=== PATIENT | male | born 1990 | race Caucasian/White ===

== ENCOUNTER 2024-05-01 15:50 | Emergency (ER) | payer OTHER, SELFPAY ==
[2024-05-01] VITALS (11 sets, daily range): BP systolic 111–139; BP diastolic 78–94; PULSE 72–114; RESP 16–20; TEMP 36.3; O2SAT 93–97
--- NOTE | ~2024-05-01 | CT_ITS ---
CT scan of the Neck Technique: 2.5 mm axial scans were obtained through the neck after intravenous administration of 75 c c Omnipaque 350. Coronal and sagittal reconstructions of the neck were obtained. Dose reduction techn ique was used on this scan by utilizing automated exposure control and iterative reconstruction techn ique. The dose-length product (DLP) was 606.91 mGy-cm. Clinical History: Dysphagia Findings: There is no evidence of any significant cervical lymphadenopathy. Several small, nonenlarged jugulo- digastric and posterior cervical lymph nodes are noted bilaterally. Parapharyngeal spaces appear norm al bilaterally. The parotid and submandibular glands appear normal. The pharyngeal mucosal spaces appear normal. No soft tissue masses are seen in the neck. The thyroid gland appears normal. Images of the lung apices reveal no abnormalities. Impression: No significant abnormalities noted. Reviewed, dictated and finalized at [facility]. Impression: No significant abnormalities noted.
--- NOTE | 2024-05-01 16:40 | ED.GENADULT ---
HPI - General Adult General Chief complaint: Unspecified Stated complaint: lump in throat, difficulty swallowing Time Seen by Provider: 05/01/24 16:24 History of Present Illness HPI narrative: 33-year-old male with no past medical history presents to emergency department for a lump in his throat and dysphagia. Patient states in November of 2023 he noticed a lump in his throat. He has been evaluated by his PCP, Dr. Kc at [facility] and Dr. Carlos ENT. States he has been on Augmentin, as cefpodoxime, dexamethasone, cetirizine, methylprednisolone and Flonase without improvement. He is currently only taking Flonase. States within the past week he noticed another lump developing on the left side of his throat. States it is growing progressively and this is concerning him. He is concerned he may have lymphoma. He is reporting difficulty swallowing solid foods. No difficulty breathing. No nausea vomiting, no fever. He denies pain in his throat. States he has been tested multiple times for strep, mono and STDs of his throat, all of which were negative. he has an appointment with a new ENT, Dr. Sandoval on May 18. reports history of tonsillectomy as a child. Related Data Allergies Allergy/AdvReac Type Severity Reaction Status Date / Time No Known Allergies Allergy Verified 05/01/24 15:51 Review of Systems Review of Systems: CONSTITUTIONAL: Denies fever, chills, or sweats. EYES: Denies visual changes, redness, or discharge. ENT: See HPI CARDIOVASCULAR: Denies chest pain, palpitations, or edema. RESPIRATORY: Denies cough or dyspnea. GASTROINTESTINAL: Denies abdominal pain, nausea, vomiting, or diarrhea. GENITOURINARY: Denies dysuria or hematuria. SKIN: Denies rash or itching. MUSCULOSKELETAL: Denies back pain, joint pain, or myalgia. NEUROLOGIC: Denies headache, numbness, or weakness. PSYCHIATRIC: Denies anxiety or depression. Exam Narrative: GENERAL: Well-appearing, well-nourished, and in no acute distress. HEAD: Normocephalic, atraumatic. EYES: PERRLA and EOMI. ENT: posterior pharynx With a area of focal edema posterior to the left tonsillar pillar. No airway compromise. Uvula is midline. No exudates or erythema. Patient tolerating secretions, no drooling. No trismus. No palpable adenopathy NECK: Supple. CHEST: Clear to auscultation. No respiratory distress. HEART: Regular rate and rhythm. No murmur heard. Normal peripheral pulses. EXTREMITIES: Normal range of motion. No edema. SKIN: Warm, dry, no rash. NEURO: No focal deficits. Alert and oriented x3 Course Vital Signs Vital signs: Vital Signs Temperature 97.4 F L 05/01/24 15:58 Pulse Rate 114 H 05/01/24 15:58 Respiratory Rate 16 05/01/24 15:58 Blood Pressure 139/91 H 05/01/24 15:58 Pulse Oximetry 96 05/01/24 15:58 Temperature 97.4 F L 05/01/24 15:58 Pulse Rate 114 H 05/01/24 15:58 Respiratory Rate 16 05/01/24 15:58 Blood Pressure 139/91 H 05/01/24 15:58 Pulse Oximetry 96 05/01/24 15:58 Medical Decision Making MDM Narrative Medical decision making narrative: 33-year-old male presents to the emergency department for dysphagia and a lump in his throat since November, believes there is a new lump forming in the past week. Triage vital significant for tachycardia 114. He is afebrile. Exam is significant for a small area of focal edema posterior to the left tonsillar pillar. There is no airway compromise. No uvular deviation, no exudates or erythema. Patient is tolerating secretions, he is not drooling. He is speaking full sentences. CBC with leukocytosis of 18.7, no bandemia. ESR is normal at 5, CRP is normal at 0.5. Chemistries are largely unremarkable. Strep and mono were negative. CT soft tissue neck shows no significant abnormalities. Workup discussed with the patient. He is tolerating secretions , food and water, and is in no respiratory distress, is airway is intact. Feel he is safe to be d
[2024-05-01 16:55] LABS: Basophils Absolute Auto 0.1 K/mm3 (0.0-0.1); Basophils Percent Auto 0.7 % (0.2-1.2); Eosinophils Absolute Auto 0.3 K/mm3 (0-0.3); Eosinophils Percent Auto 1.5 % (0-4.4); Hematocrit 50.7 % (42.0-52.0); Hemoglobin 17.7 g/dL (14.0-18.0); Immature Granulocyte Absolute 0.06 K/mm3 (0.00-0.031); Immature Granulocyte Percent A 0.3 % (0-0.5); Lymphocytes Absolute Auto 4.76 K/mm3 (0.9-3.2); Lymphocytes Percent Auto 25.5 % (18.3-44.2); Mean Corpuscular HGB Conc 34.9 g/dl (32-36); Mean Corpuscular Hemoglobin 32.2 pg (26-34); Mean Corpuscular Volume 92.2 fl (80-100); Mean Platelet Volume 10.2 fl (7.4-10.4); Monocytes Absolute Auto 1.7 K/mm3 (0.1-0.6); Monocytes Percent Auto 8.9 % (2.6-8.5); Neutrophils Absolute Auto 11.8 K/mm3 (1.3-6.7); Neutrophils Percent Auto 63.1 % (45.5-73.1); Platelet Count Result 349 k/mm3 (150-375); Red Cell Distribution Width 12.7 % (11.5-14.5); White Blood Count 18.7 K/mm3 (4.5-10.0)
[2024-05-01 17:00] LABS: Estimated CRCL calculation 138 ml/min; Estimated Glomerular Filt Rate > 60
[2024-05-01 17:08] LABS: Alanine Aminotransferase 56 U/L (6-50); Albumin Level 4.9 g/dL (3.5-5.1); Alkaline Phosphatase 60 U/L (38-126); Anion Gap 10 mmol/L (4-12); Aspartate Amino Transferase 32 U/L (17-59); Bilirubin,Total 0.8 mg/dL (0.2-1.3); Blood Urea Nitrogen 8 mg/dL (9-20); CRP 0.5 mg/dL (<1.0); Calcium 9.6 mg/dL (8.4-10.2); Carbon Dioxide 22 mmol/L (22-30); Chloride 110 mmol/L (98-107); Estimated CRCL calculation 154 ml/min; Estimated Glomerular Filt Rate > 60; Glucose 125 mg/dL (65-110); Potassium 3.7 mmol/L (3.4-5.0); Sodium 142 mmol/L (137-145)
[2024-05-01 17:09] LABS: Monoscreen Negative (Negative); Negative Monotest Control Negative (Negative); Positive Monotest Control Positive (Positive)
[2024-05-01 17:34] LABS: Strep Group A RT-PCR NOT DETECTED (Negative)
[2024-05-01 17:48] LABS: Erythrocyte Sedimentation Rate 5 mm/hr (0-20)
--- NOTE | 2024-05-01 18:16 | PC.NURSE ---
tolerated PO challenge
== END 2024-05-01 18:20 | disposition home or self-care (01) ==
PROVIDERS: Emergency Provider Physician Assistant
DX: R09.A2 Foreign body sensation, throat (principal); F45.8 Other somatoform disorders
CPT/HCPCS: 36415; 70491; 80053; 85025; 85652; 86140; 86308; 87651; 99284; Q9967

== ENCOUNTER 2024-12-22 10:38 | Outpatient (CLI) | payer OTHER, SELFPAY ==
--- NOTE | 2024-12-22 | EST_ITS ---
Patient Info Name: Shaq Apodaca Age: 34 years : 1990 Gender: Male Ht: 71 in Wt: 265 lbs BSA: 2.50 m2 HR: 67 bpm BP: 120 / 70 mmHg Exam Date: 12/22/2024 11:14 AM Exam Location: Echo Lab Patient Status: Outpatient Admit Date: 12/22/2024 Staff Ordering Physician: KayodeSupriya MD Attending Provider: KayodeSupriya MD Exercise Technologist: Alessia Vasquez [facility] Exercise Physician: Chon Davis DO Exam Type: CA stress test treadmill Study Info A treadmill exercise stress test was performed. Summary 1. 1. Negative Edouard exercise stress test for ischemic ST changes by ECG criteria. 2. 2. Reduced functional capacity, achieving 7 METs of workload. 3. 3. Appropriate HR response to exercise. 4. 4. Appropriate HR recovery at 1 minute post exercise. 5. 5. No imaging with stress testing. 6. 6. Patient informed of the above results. Protocol: Edouard Stress ECG Details Stage: REST Duration (min): 6 min : 15 sec Speed (mph): 0.0 Grade (%): 0 HR (bpm): 69 SBP (mmHg): 120 DBP (mmHg): 70 METS: --- Stage: REST Duration (min): 8 min : 15 sec Speed (mph): 0.0 Grade (%): 0 HR (bpm): 68 SBP (mmHg): 120 DBP (mmHg): 70 METS: --- Stage: STAGE 1 Duration (min): 1 min : 0 sec Speed (mph): 1.7 Grade (%): 10 HR (bpm): 108 SBP (mmHg): 120 DBP (mmHg): 70 METS: --- Stage: STAGE 1 Duration (min): 2 min : 0 sec Speed (mph): 1.7 Grade (%): 10 HR (bpm): 117 SBP (mmHg): 120 DBP (mmHg): 70 METS: --- Stage: STAGE 1 Duration (min): 3 min : 0 sec Speed (mph): 1.7 Grade (%): 10 HR (bpm): 118 SBP (mmHg): 146 DBP (mmHg): 74 METS: --- Stage: STAGE 2 Duration (min): 1 min : 0 sec Speed (mph): 2.5 Grade (%): 12 HR (bpm): 147 SBP (mmHg): 146 DBP (mmHg): 74 METS: --- Stage: STAGE 2 Duration (min): 2 min : 0 sec Speed (mph): 2.5 Grade (%): 12 HR (bpm): 159 SBP (mmHg): 144 DBP (mmHg): 76 METS: --- Stage: STAGE 2 Duration (min): 3 min : 0 sec Speed (mph): 2.5 Grade (%): 12 HR (bpm): 164 SBP (mmHg): 144 DBP (mmHg): 76 METS: --- Stage: STAGE 3 Duration (min): 0 min : 11 sec Speed (mph): 3.4 Grade (%): 14 HR (bpm): 166 SBP (mmHg): 144 DBP (mmHg): 76 METS: --- Stage: RECOVERY Duration (min): 0 min : 48 sec Speed (mph): 0.0 Grade (%): 0 HR (bpm): 138 SBP (mmHg): 158 DBP (mmHg): 65 METS: --- Stage: RECOVERY Duration (min): 1 min : 48 sec Speed (mph): 0.0 Grade (%): 0 HR (bpm): 81 SBP (mmHg): 158 DBP (mmHg): 65 METS: --- Stage: RECOVERY Duration (min): 2 min : 48 sec Speed (mph): 0.0 Grade (%): 0 HR (bpm): 94 SBP (mmHg): 119 DBP (mmHg): 72 METS: --- Stage: RECOVERY Duration (min): 3 min : 6 sec Speed (mph): 0.0 Grade (%): 0 HR (bpm): 83 SBP (mmHg): 119 DBP (mmHg): 72 METS: --- Rest HR: 68 bpm Peak HR: 169 bpm Rest Sys BP: 120 mmHg Peak Sys BP: 158 mmHg Max Pred HR: 186 bpm % Max Pred HR: 91 % Target HR: 158 bpm Max RPP: 26,702 bpm*mmHg Martinez Score: 2 Termination Reason: Reached target heart rate or workload Cardiac Symptoms: Shortness of breath Max ST Seg Deviation: 0.90 mm Total Time: 6 min : 11 sec Rest Rangel BP: 70 mmHg Peak Rangel BP: 65 mmHg Angina Score: None Total METS: 7.4 Resting ECG Sinus rhythm, minimal Q waves in anterolat/inf leads. Stress ECG No ST changes. Arrhythmias None. Report Signatures
--- OUTSIDE RECORDS SUMMARY | 2024-12-22 12:07 | XMS_ITS | Referral Summary ---
Author Organization [facility] Address [address] [place] [address] Care Team Providers Care Pick Up Worker Name Role Phone Unavailable Primary Care Provider Unavailabl e Source Comments [facility],non-owned Affiliates and Associated Physician Practices is amultiple site organization consisting of ambulatory clinics and hospital sitesin [place], [place], [place] and [place]. This disclosure is being madepursuant to the Care Everywhere program and may not contain all information available regarding this patient. Last updated 18.[facility] Social History Tobacco Use Types Packs/Day Years Used Date Smoking Tobacco: Never Assessed Sex and Gender Information Value Date Recorded Sex Assigned at Not on file Gender Identity Not on file Sexual Orientation Not on file Plan of Treatment Not on file Shaq Apodaca Personal/Family Self 1990
--- OUTSIDE RECORDS SUMMARY | 2024-12-22 12:07 | XMS_ITS | Encounter Summary ---
Author Organization [facility] Address [facility] [place] [address] Care Team Providers Care Milk Drier Name Role Phone Supriya Headley MD Primary Care Provider Encounter Details Date Type Department Care Team (Late st Contact Info) Description 11/17/2024 MyChart Message Enc [facility] Family & Internal Medicine [facility] [id number] [place] [phone] [place] [address] [facility] [address] [place] [id number] Referrals and medication. 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 Legal Sex Male 1:52 PM CDT Gender Identity Male 11/11/2024 8:25 AM LAMINATION MACHINE OPERATOR Sexual Orientation Lesbian or Jeffrey 11/11/2024 8: 25 AM LAMINATION MACHINE OPERATOR documented as of this encounter Plan of Treatment Upcoming Encounters Date Type Department Care Team (Late st Contact Info) Description 02/10/2025 1:40 PM CDT Office Visit [facility] Family & Internal Medicine [facility] [address] [place] [phone] [place] [address] [place] [address] documented as of this encounter Visit Diagnoses Not on filedocumented in this encounter Additional Health Concerns Assessment Noted Time PHQ-9 Depression Total Score: 0 11/11/19 8:23 AM LAMINATION MACHINE OPERATOR documented as of this encounter Care Teams Milk Drier Relationship Specialty [place] [address] [place] [address] PCP - General INTERNAL MEDICINE 11/03/24 documented as of this encounter
--- OUTSIDE RECORDS SUMMARY | 2024-12-22 12:07 | XMS_ITS | Clinical Summary ---
Author Organization [facility] Address [address] [place] [address] Care Team Providers Care Lens Edge Grinder Machine Name Role Phone Unavailable Primary Care Provider Unavailabl e Source Comments [facility],non-owned Affiliates and Associated Physician Practices is amultiple site organization consisting of ambulatory clinics and hospital sitesin [place], [place], [place] and [place]. This disclosure is being madepursuant to the Care Everywhere program and may not contain all information available regarding this patient. Last updated 18.[facility] Social History Tobacco Use Types Packs/Day Years Used Date Smoking Tobacco: Never Assessed Sex and Gender Information Value Date Recorded Sex Assigned at Not on file Gender Identity Not on file Sexual Orientation Not on file Plan of Treatment Health Maintenance Due Date Last Done Comments HIV SCREENING 2005 HEPATITIS C SCREENING 05/12/2008 DTAP/TDAP/TD VACCINES (1 - Tdap) 2009 HEPATITIS B VACCINE (1 of 3 - 19+ 3-dose series) 2009 COVID-19 VACCINE ( - 2023-2 5 season) 2024 INFLUENZA VACCINE (#1) 2024 09/30/2018 DEPRESSION SCREENING 10/20/2024 ZOSTER VACCINE (1 of 2) 2040 HIB VACCINE Aged Out No longer eligi ble based on patient's age to complete this topic HPV VACCINE Aged Out No longer eligi ble based on patient's age to complete this topic MENINGOCOCCAL (Group B) VACCINE Aged Out No longer eligible based on patient's age to complete this topic MENINGOCOCCAL VACCINE Aged Out No carolyn mary grace eligible based on patient's age to complete this topic PNEUMOCOCCAL VACCINE Aged Out No long er eligible based on patient's age to complete this topic Shaq Apodaca Personal/Family Self 1990
--- OUTSIDE RECORDS SUMMARY | 2024-12-22 12:07 | XMS_ITS | Clinical Summary ---
Author Organization [facility] Address [facility] [place] [address] Care Team Providers Care Learning Support Assistant Name Role Phone Supriya Headley MD Primary Care Provider Allergies Active Allergy Reactions Criticality Noted Date Comments Cockroach Other (see comment) 12/02/2024 Confirmed with bloodwork Ragweed Other (see comment) 12/02/2024 Confirmed with bloodwork Medications losartan (COZAAR) 50 MG tabletIndications :Essential hypertension Take 1 tablet (50 mg total) by mouth daily. 90 tablet 1 09/09/20 24 Active famotidine (PEPCID) 40 MG tabletIndications :Gastroesophageal reflux disease without esophagitis Take 0.5 tablets (20 mg total) by mouth 2 (two) times daily with meals. 180 tablet 3 10/28/19 25 Active omeprazole (PRILOSEC) 40 MG capsuleIndication s:Gastroesophagea l reflux disease without esophagitis Take 1 capsule (40 mg total) by mouth daily. 90 capsule 3 10/28/19 25 Active atorvastatin (LIPITOR) 40 MG tabletIndications :Mixed hyperlipidemia Take 1 tablet (40 mg total) by mouth see administration instructions. AT DINNER 30 tablet 2 11/17/19 25 Active amoxicillin-clavu lanate (AUGMENTIN) 875-125 MG tablet Take 875 mg of amoxicillin by mouth 2 (two) times daily. 11/30/19 25 025 Disconti nued(Pat ient Discharg e) Active Problems Problem Noted Date Diagnosed Date Mixed hyperlipidemia 11/11/2024 SOB (shortness of breath) 11/09/2024 Intrinsic eczema 09/15/2024 Chronic congestion of paranasal sinus 08/20/2024 Gastroesophageal reflux disease without esophagi tis 08/20/2024 Non-seasonal allergic rhinitis due to pollen 10/2023 Obesity (BMI 30-39.9) 06/16/2024 Subclinical hypothyroidism 06/16/2024 Hidradenitis suppurativa 06/16/2024 Essential hypertension 06/16/2024 Encounters Date Type Department Care Team Description 12/05/2024 MyChart Message Enc [facility] Family & Internal Medicine [address] [phone] Supriya Headley MD Egd with biopsy 12/03/2024 11:59 PM SHRIMP TRAWLER CAPTAIN Anesthesia Event [address] [phone] Varinder Cortes CRNA 12/03/2024 Orders Only [facility] Family & Internal [address] [phone] Supriya Headley MD 12/03/2024 Telephone [facility] Day [facility] [address] [place] [address] [phone] Toshia Prado MD Surgical Clearance 12/02/2024 Travel 11/30/2024 Scan [facility] INFO SRVCS Scanned, [facility] 11/22/2024 MyChart Message Enc [facility] General Surgery [address], [address] [place] [address] Toshia Prado MD Fatty mass in throat 11/18/2024 MyChart Message Enc [facility] Family & Internal [address] [phone] Supriya Headley MD Stress test 11/17/2024 Orders Only [facility] Family & Internal [address] [phone] Supriya Headley MD 11/17/2024 Liam Message Enc [facility] Family & Internal [address] [phone] Liam michael Provider requests 11/17/2024 Orders Only [facility] Family Internal [address] [phone] Supriya Headley MD 11/17/2024 Liam Message Enc [facility] Family Internal [address] [phone] Supriya Headley MD Referrals and medication. 11/11/2024 12:55 PM SHRIMP TRAWLER CAPTAIN - 11/11/2024 11:59 PM SHRIMP TRAWLER CAPTAIN Hospital Encounter [facility] [address] [place] [address] Supriya Headley MD Discharge Disposition: Home or Self Care (Routine Discharge) 11/11/2024 9:10 AM SHRIMP TRAWLER CAPTAIN Laboratory Only [facility] Family & Internal [address] [phone] Supriya Headley MD 11/11/2024 8:20 AM SHRIMP TRAWLER CAPTAIN Office Visit [facility] Family & Internal [address] [phone] Supriya Headley MD New Patient (New patient transfer patient former loni / acid reflux and heart palpitations) 11/11/2024 Travel 11/09/2024 Prep for Procedure [facility] General Surgery [address], [address] [place] [phone] Toshia Prado MD 11/03/2024 2:49 PM SHRIMP TRAWLER CAPTAIN - 11/03/2024 11:59 PM SHRIMP TRAWLER CAPTAIN Hospital Encounter [facility] Cardiopulmonary Services [address] [place] [phone] Toshia Prado MD Discharge Disposition: Home or Self Care (Routine Discharge) 11/03/2024 2:49 PM SHRIMP TRAWLER CAPTAIN - 11/03/2024 11:59 PM SHRIMP TRAWLER CAPTAIN Hospital Encounter [facility] Imaging [address] [place] [address] Toshia Prado MD Discharge Disposition: Home or Self Care (Routine Discharge) 11/03/2024 2:48 PM SHRIMP TRAWLER CAPTAIN Hospital Encounter [facility] [address] [place] [address] Toshia Prado MD Discharge Disposition: Home or Self Care (Routine Discharge) 11/03/2024 2:20 PM SHRIMP TRAWLER CAPTAIN Office Visit [facility] General Surgery [address], [address] [place] [phone] Toshia Prado MD Egd (Patient presents for EGD consult due to GERD.) 11/03/2024 Travel 10/28/2024 Orders Only [facility] Family Internal [address] [phone] Loni Singh NP 10/27/2024 MyChart Message Enc [facility] Internal [address] [phone] Loni Singh NP Medications 10/08/2024 MyChart Message Enc [facility] Internal [address] [phone] Loni Singh NP E.n.t. Release Forms 10/08/2024 Telephone [facility] Internal [address] [phone] Loni Singh NP Results 10/01/2024 MyChart Message Enc [facility] Internal [address] [phone] Loni Singh NP G.I. and auditor tax from Last 3 Months Immunizations Name Administration Dates Next Due Dtp (Generic) 06/20/1995, 3,01/15/1992,09/02/1991,0 06/28/1991 Hepatitis A (Havrix [address]) 12/24/2010 Hepatitis B Pediatric 05/21/2000,12/18/1999,11/0 01/1999 Hib (Generic) 06/20/1995,11/28/1992,09/02/1991 ,06/28/1991 Influenza Adult (Generic) 09/30/2018 MMR (MMRII) 06/20/1995,08/05/1991 Polio Opv (Generic) 06/20/1995, 3,01/15/1992,09/02/1991,0 06/28/1991 Td (TDVAX) 06/06/2004 Tdap (Generic) 01/09/2022 Social History Tobacco Use Types Packs/Day Years Used Date Smoking Tobacco: Every Day Cigarettes 0.5 15 Smokeless Tobacco: Never Tobacco Cessation:Ready to Q uit: No; Counseling Given: Yes Comments:Trying to quit Alcohol Use Standard Drinks/Week Comments Yes 0 (1 standard drink = 0.6 oz pur e alcohol) rarely PHQ-2 Answer Date Recorded Patient Health Questionnaire-2 Score 0 11/11/2024 Sex and Gender Information Value Date Recorded Sex Assigned at Male 11/03/2024 2:46 PM SHRIMP TRAWLER CAPTAIN Legal Sex Male 1:52 PM CDT Gender Identity Male 11/11/2024 8:25 AM SHRIMP TRAWLER CAPTAIN Sexual Orientation Lesbian or Jeffrey 11/11/2024 8: 25 AM SHRIMP TRAWLER CAPTAIN Last Filed Vital Signs Vital Sign Reading Time Taken Comments Blood Pressure 134/80 11/11/2024 8:18 AM SHRIMP TRAWLER CAPTAIN Pulse 78 11/11/2024 8:18 AM SHRIMP TRAWLER CAPTAIN Temperature 37 C (98.6 F) 11/11/2024 8:18 AM SHRIMP TRAWLER CAPTAIN Respiratory Rate 16 11/11/2024 8:18 AM SHRIMP TRAWLER CAPTAIN Oxygen Saturation 98% 11/11/2024 8:18 AM SHRIMP TRAWLER CAPTAIN Inhaled Oxygen Concentration - - Weight 124.7 kg (275 lb) 12/02/2024 1:13 PM SHRIMP TRAWLER CAPTAIN Height 177.8 cm (5' 10 ) 12/02/2024 1:13 PM SHRIMP TRAWLER CAPTAIN Body Mass Index 39.46 12/02/2024 1:13 PM SHRIMP TRAWLER CAPTAIN Plan of Treatment Upcoming Encounters Date Type Department Care Team (Late st Contact Info) Description 02/10/2025 1:40 PM CDT Office Visit [facility] Family & Internal Medicine [facility] [address] [place] [phone] [place] [address] [facility] [address] [place] [address] Health Maintenance Due Date Last Done Comments Annual Physical 1993 Influenza Adult (#1) 2024 09/30/2018 Pneumococcal Vaccine: Pediatrics (0 to 5 Years) and At-Risk Patients (6 to 64 Years) (1 of 2 - PCV) 01/18/2025 Postponed from 1996 (Patient Refused) COVID-19 Vaccine ( - season) 2025 Postponed from 06/20/2024 (Patient Refused) DTaP, Tdap and Td Vaccines (7 - Td or Tdap) 01/10/2032 01/09/2022, 06/06/2004, 06/20/1995, Additional history exists Hepatitis B Vaccines Completed 05/21/2000, 12/18/1999, 08/23/1999 Hepatitis C Completed 02/10/2024 PHQ-2 (Physician Teller) Completed 11/11/2024 HPV Vaccines Aged Out No longer eligi ble based on patient's age to complete this topic Meningococcal B Vaccine Aged Out No l onger eligible based on patient's age to complete this topic Meningococcal Vaccine Aged Out No carolyn mary grace eligible based on patient's age to complete this topic RSV Immunizations Under 20 Months Aged Out No longer eligible based on patient's age to complete this topic Procedures Procedure Name Priority Date/Time Associated Diagnosis Comments STRESS TEST ONLY, EXERCISE Routine 12/02/2024 7:42 AM SHRIMP TRAWLER CAPTAIN SOB (shortness of breath) COLLECTION VENOUS BLOOD VENIPUNCTURE Routine 11/11/2024 9:09 AM SHRIMP TRAWLER CAPTAIN Mixed hyperlipidemia COMPREHENSIVE METABOLIC PANEL Routine 11/11/2024 9:09 AM SHRIMP TRAWLER CAPTAIN Mixed hyperlipidemia LIPID PANEL Routine 11/11/2024 9:09 AM SHRIMP TRAWLER CAPTAIN Mixed hyperlipidemia XR CHEST PA+LAT Routine 11/03/2024 3:35 PM SHRIMP TRAWLER CAPTAIN Gastroesophageal reflux disease without esophagitis SOB (shortness of breath) ECG 12-LEAD Routine 11/03/2024 3:34 PM SHRIMP TRAWLER CAPTAIN Gastroesophageal reflux disease without esophagitis SOB (shortness of breath) TROPONIN, QUANT Routine 11/03/2024 2:51 PM SHRIMP TRAWLER CAPTAIN Gastroesophageal reflux disease without esophagitis SOB (shortness of breath) HEPATITIS PANEL,ACUTE Routine 02/10/2024 8:07 AM CDT Exposure to STD High risk homosexual behavior from Last 3 Months or Most Recently Relevant to Health Maintenance Results * COMPREHENSIVE METABOLIC PANEL (11/11/2024 9:09 AM SHRIMP TRAWLER CAPTAIN) GLUCOSE 84 70 - 99 MG/DL 11/11/2024 1:40 PM [facility] BUN 8 7 - 18 MG/DL 11/11/2024 1:40 PM [facility] CREATININE S/P/B 1.01 0.7 - 1.3 MG/DL 11/11/2024 1:40 PM [facility] SODIUM S/P/B 143 136 - 145 MMOL/L 11/11/2024 1:40 PM [facility] POTASSIUM S/P/B 4.9 3.5 - 5.1 MMOL/L 11/11/2024 1:40 PM [facility] CHLORIDE S/P/B 107 100 - 108 MMOL/L 11/11/2024 1:40 PM [facility] CO2 26.8 21 - 32 MMOL/L 11/11/2024 1:40 PM [facility] CALCIUM S/P/B 9.8 8.5 - 10.1 MG/DL 11/11/2024 1:40 PM [facility] BILIRUBIN TOTAL S/P/B 0.5 0.2 - 1.2 MG/DL 11/11/2024 1:40 PM [facility] TOTAL PROTEIN S/P/B 7.3 6.4 - 8.2 G/DL 11/11/2024 1:40 PM [facility] ALBUMIN S/P/B 4.2 3.4 - 5.0 G/DL 11/11/2024 1:40 PM [facility] AST 24 15 - 37 U/L 11/11/2024 1:40 PM [facility] ALT 54 16 - 60 U/L 11/11/2024 1:40 PM [facility] ALKALINE PHOSPHATASE S/P/B 75 50 - 136 U/L 11/11/2024 1:40 PM [facility] ANION GAP 9.2 5 - 15 MMOL/L 11/11/2024 1:40 PM [facility] BUN CREATININE RATIO 7.9 6 - 26 11/11/2024 1:40 PM [facility] A/G RATIO 1.4 1.0 - 2.0 RATIO 11/11/2024 1:40 PM [facility] GFR ESTIMATE >90 >90 ML/MIN/1.7 3 M2 11/11/2024 1:40 PM [facility] Comment: NOTE: eGFR is not calculated for patients <18 years of age. This is an estimated GFR calculation using the new CKD EPI creatinine equation without race and so does not require a correction factor for race. This estimated GFR should not be used for calculating drug doses. 11/11/2024 9:09 AM SHRIMP TRAWLER CAPTAIN us Supriya Headley MD LABORATORY Final Resul t [facility] [address] [place] [address], [place] [phone] * (ABNORMAL) LIPID PANEL (11/11/2024 9:09 AM SHRIMP TRAWLER CAPTAIN) CHOLESTEROL 230(H) <200.0 MG/DL 11/11/2024 1:40 PM [facility] TRIGLYCERIDES 90 <150 MG/DL 11/11/2024 1:40 PM [facility] HDL 36(L) >40.0 MG/DL 11/11/2024 1:40 PM [facility] LDL (CALCULATED) 176(H) <100 MG/DL 11/11/2024 1:40 PM [facility] NON HDL CHOLESTEROL 194(H) <130 MG/DL 11/11/2024 1:40 PM [facility] CHOL/HDL RATIO 6.4(H) 0.0 - 4.5 11/11/2024 1:40 PM [facility] VLDL CALCULATION 18 5 - 55 MG/DL 11/11/2024 1:40 PM [facility] LIPID INTERPRETATION 11/11/2024 1:40 PM [facility] Comment: NIH CONCENSUS REPORT RECOMMENDATIONS: ADULT CHILD LOW RISK: CHOLESTEROL <200 <170 TRIGLYCERIDE <150 --- HDL >=60 --- LDL <100 <110 BORDERLINE: CHOLESTEROL 200-239 170-199 TRIGLYCERIDE 150-199 --- HDL 40-59 --- LDL 100-159 110-129 HIGH RISK: CHOLESTEROL >=240 >=200 TRIGLYCERIDE >=200 --- HDL <40 --- LDL >=160 >=130 11/11/2024 9:09 AM SHRIMP TRAWLER CAPTAIN us Supriya Headley MD LABORATORY Final Resul t [facility] [address] [place] [address], [place] [phone] * XR CHEST PA+LAT (11/03/2024 3:35 PM SHRIMP TRAWLER CAPTAIN) Anatomical Region Laterality Modality Chest Radiographic Laura ging 11/03/2024 5:47 PM SHRIMP TRAWLER CAPTAIN Impressions 11/03/2024 5:48 PM SHRIMP TRAWLER CAPTAIN IMPRESSION: Linear opacification right lower lung. This is suspected due to atelectasis. Referred By: Interpreted By: Ced Corbin MD, 11/03/2024 5:47 PM Narrative 11/03/2024 5:48 [place] [address] Procedure(s): XR CHEST PA+LAT Date of service: 11/03/2024 3:16 PM Provided clinical information: 34 years, Male, Shortness of breath Procedure and materials: PA and lateral Comparison studies: None. Findings: Cardiac silhouette is within normal limits. Lungs are expanded and clear of any consolidations. Minimal opacification right lower lung suspected due to atelectasis. Procedure Note Ced Corbin MD - 11/03/[address] [place] [address] Procedure(s): XR CHEST PA+LAT Date of service: 11/03/2024 3:16 PM Provided clinical information: 34 years, Male, Shortness of breath Procedure and materials: PA and lateral Comparison studies: None. Findings: Cardiac silhouette is within normal limits. Lungs are expanded and clearof any consolidations. Minimal opacification right lower lung suspecteddue to atelectasis. IMPRESSION: Linear opacification right lower lung. This is suspected due toatelectasis. Referred By: Interpreted By: Ced Corbin MD, 11/03/2024 5:47 PM Toshia Prado MD GENERAL IMAGING Final Result * ECG 12 lead (Hosp Performed) (11/03/2024 3:34 PM SHRIMP TRAWLER CAPTAIN) 11/03/2024 3:34 PM SHRIMP TRAWLER CAPTAIN Narrative [facility] RAD - 11/04/2024 6:58 AM SHRIMP TRAWLER CAPTAIN [facility] Test Date: 2024-11-03 Pat Name: SHAQ MELO Department: 85 Room: Gender: Male Fire Prevention Chief: : 1990 Requested By: TOSHIA PRADO Order Number: [id number] Reading MD: Dami Mathew Measurements Intervals Hasty Rate: 65 P: 33 MT: 151 QRS: 53 QRSD: 93 T: 40 QT: 373 QTc: 388 Interpretive Statements SINUS RHYTHM POSSIBLE LEFT VENTRICULAR HYPERTROPHY [VOLTAGE CRITERIA PLUS LAE OR QRS WIDENING] No previous ECG available for comparison MP TRAWLER CAPTAIN Procedure Note Dami Mathew MD - 11/04/2024 [facility] Test Date: 2024-11-03 Pat Name: SHAQ MELO Department: 85 Room: Gender: Male Fire Prevention Chief: : 1990 Requested By: TOSHIA PRADO Order Number: [id number] Reading MD: Dami Mathew Measurements Intervals Hasty Rate: 65 P: 33 MT: 151 QRS: 53 QRSD: 93 T: 40 QT: 373 QTc: 388 Interpretive Statements SINUS RHYTHM POSSIBLE LEFT VENTRICULAR HYPERTROPHY [VOLTAGE CRITERIA PLUS LAE OR QRS WIDENING] No previous ECG available for comparison MP TRAWLER CAPTAIN us Toshia Prado MD ECG ORDERABLES Final Result [facility] RAD * TROPONIN, QUANT (11/03/2024 2:51 PM SHRIMP TRAWLER CAPTAIN) TROPONIN I HIGH SENSITIVITY 6 0 - 75 ng/L 11/03/2024 3:36 PM SHRIMP TRAWLER CAPTAIN [facility] Comment: HIGH DOSES OF BIOTIN, TROPONIN-SPECIFIC AUTOANTIBODIES, AND ANTIBODY THERAPY CONTAINING HAMA MAY INTERFERE WITH THIS TEST RESULT. CORRELATION TO CLINICAL HISTORY AND PRESENTATION RECOMMENDED. 11/03/2024 2:51 PM SHRIMP TRAWLER CAPTAIN Toshia Prado MD LABORATORY Final Result Performing Organization Address City/[facility]/ZIP Co de Phone Number [facility] [address] [place] [address], [place] [phone] * HEPATITIS PANEL,ACUTE (02/10/2024 8:07 AM CDT) HEPATITIS B SURFACE AG NON-REACTI VE NON-REACTI VE 02/10/2024 3:49 PM CDT [facility] HEP B CORE IGM NON-REACTI VE NON-REACTI VE 02/10/2024 3:49 PM CDT [facility] HAV IGM NON-REACTI VE NON-REACTI VE 02/10/2024 3:49 PM CDT [facility] HEPATITIS C AB NON-REACTI VE NON-REACTI VE 02/10/2024 3:49 PM CDT [facility] 02/10/2024 8:07 AM CDT Emory Zuluaga NP LABORATORY Final Result Performing Organization Address City/[facility]/ZIP Co de Phone Number [facility] [address] [place] [address], [place] [phone] from Last 3 Months or Most Recently Relevant to Health Maintenance Insurance [employer]ID[employer] Care Teams Learning Support Assistant Relationship Specialty [place] [address] [place] [address] PCP - General INTERNAL MEDICINE 11/03/24
--- OUTSIDE RECORDS SUMMARY | 2024-12-22 12:07 | XMS_ITS | Encounter Summary ---
Author Organization [facility] Address [facility] [place] [address] Care Team Providers Care Gamer Name Role Phone Emory Zuluaga NP Primary Care Provide r Loni Singh NP Primary Care Provider Supriya Headley MD Primary Care Provider Encounter Details Date Type Department Care Team (Late st Contact Info) Description 03/25/2024 Bandwidth Message Enc [facility] Family & Internal Medicine [address] [phone] Emory Zuluaga, NATAN [address] [facility] [place] [address] Ent Social History Tobacco Use Types Packs/Day Years Used Date Smoking Tobacco: Every Day Cigarettes Smokeless Tobacco: Never Alcohol Use Standard Drinks/Week Comments Yes 0 (1 standard drink = 0.6 oz pur e alcohol) rarely PHQ-2 Answer Date Recorded Patient Health Questionnaire-2 Score 0 02/06/2024 Sex and Gender Information Value Date Recorded Sex Assigned at Male 11/03/2024 2:46 PM ANALYTICS MANAGER Legal Sex Male 1:52 PM CDT Gender Identity Male 11/11/2024 8:25 AM ANALYTICS MANAGER Sexual Orientation Lesbian or Jeffrey 11/11/2024 8: 25 AM ANALYTICS MANAGER documented as of this encounter Progress Notes * Saadia Burgos RN - 03/25/2024 11:06 AM CDT Please review and advise on note from patient. documented in this encounter Plan of Treatment Upcoming Encounters Date Type Department Care Team (Late st Contact Info) Description 02/10/2025 1:40 PM CDT Office Visit [facility] Family & Internal Medicine [facility] [address] [place] [address] [place] [address] [address] documented as of this encounter Visit Diagnoses Not on filedocumented in this encounter Care Teams Gamer Relationship Specialty Start Date End Date Emory Zuluaga NP PCP - General NURSE PRACTITIONER ADULT HEALTH 02/03/24 05/09/24 [place] [address] [address]. [place] [address] PCP - General Nurse Practitioner Family 06/09/2410/20 [place] [address] [place] [address] PCP - General INTERNAL MEDICINE 11/03/24 documented as of this encounter
--- OUTSIDE RECORDS SUMMARY | 2024-12-22 12:07 | XMS_ITS | Encounter Summary ---
Author Organization [facility] Address [facility] [place] [address] Care Team Providers Care Business Proposal Rep Name Role Phone Supriya Headley MD Primary Care Provider Encounter Details Date Type Department Care Team (Late st Contact Info) Description 12/05/2024 GO Net Systemst Message Enc [facility] Family & Internal Medicine [address] [phone] [place] [address] [address] Egd with biopsy Social History Tobacco Use Types Packs/Day Years Used Date Smoking Tobacco: Every Day Cigarettes 0.5 15 Smokeless Tobacco: Never Comments:Trying to quit Alcohol Use Standard Drinks/Week Comments Yes 0 (1 standard drink = 0.6 oz pur e alcohol) rarely PHQ-2 Answer Date Recorded Patient Health Questionnaire-2 Score 0 11/11/2024 Sex and Gender Information Value Date Recorded Sex Assigned at Male 11/03/2024 2:46 PM UNIT SECY Legal Sex Male 1:52 PM CDT Gender Identity Male 11/11/2024 8:25 AM UNIT SECY Sexual Orientation Lesbian or Jeffrey 11/11/2024 8: 25 AM UNIT SECY documented as of this encounter Progress Notes * Saadia Burgos RN - 12/06/2024 10:24 AM CST Please let me know you have received this. SECY documented in this encounter Plan of Treatment Upcoming Encounters Date Type Department Care Team (Late st Contact Info) Description 02/10/2025 1:40 PM CDT Office Visit [facility] Family & Internal Medicine [facility] [address] [place] [phone] [place] [address] [phone] documented as of this encounter Visit Diagnoses Not on filedocumented in this encounter Additional Health Concerns Assessment Noted Time PHQ-9 Depression Total Score: 0 11/11/19 8:23 AM UNIT SECY documented as of this encounter Care Teams Business Proposal Rep Relationship Specialty [place] [address] [place] [address] PCP - General INTERNAL MEDICINE 11/03/24 documented as of this encounter
--- OUTSIDE RECORDS SUMMARY | 2024-12-22 12:07 | XMS_ITS | Patient Health Summary ---
Author Organization [facility] Address [address] [place] [address] Care Team Providers Care Tubing Drier Name Role Phone Unavailable Primary Care Provider Unavailabl e Note from [facility],non-owned Affiliates and Associated Physician Practices is amultiple site organization consisting of ambulatory clinics and hospital sitesin [place] and [place]. This disclosure is being madepursuant to the Care Everywhere program and may not contain all information available regarding this patient. Last updated 18.[facility] Social History Tobacco Use Types Packs/Day Years Used Date Smoking Tobacco: Never Assessed Sex and Gender Information Value Date Recorded Sex Assigned at Not on file Gender Identity Not on file Sexual Orientation Not on file
--- OUTSIDE RECORDS SUMMARY | 2024-12-22 12:07 | XMS_ITS | Encounter Summary ---
Author Organization [facility] Address [facility] [place] [address] Care Team Providers Care Director Of Planning Name Role Phone Emory Zuluaga [employer] Primary Care Provide r Loni Singh NP Primary Care Provider [phone] Supriya Headley MD Primary Care Provider [phone] Encounter Details Date Type Department Care Team (Late st Contact Info) Description 03/09/2024 [email or web address] Message Enc [facility] Family & Internal Medicine [address] [phone] [facility] Provider ENT appt Social History Tobacco Use Types Packs/Day Years Used Date Smoking Tobacco: Every Day Cigarettes Smokeless Tobacco: Never Alcohol Use Standard Drinks/Week Comments Yes 0 (1 standard drink = 0.6 oz pur e alcohol) rarely PHQ-2 Answer Date Recorded Patient Health Questionnaire-2 Score 0 02/06/2024 Sex and Gender Information Value Date Recorded Sex Assigned at Male 11/03/2024 2:46 PM LUNG SPLITTER Legal Sex Male 1:52 PM CDT Gender Identity Male 11/11/2024 8:25 AM LUNG SPLITTER Sexual Orientation Lesbian or Jeffrey 11/11/2024 8: 25 AM LUNG SPLITTER documented as of this encounter Plan of Treatment Upcoming Encounters Date Type Department Care Team (Late st Contact Info) Description 02/10/2025 1:40 PM CDT Office Visit [facility] Family & Internal Medicine [address] [phone] [place] [id number] [place] [address] documented as of this encounter Visit Diagnoses Not on filedocumented in this encounter Care Teams Director Of Planning Relationship Specialty Start Date End Date Emory Zuluaga NP PCP - General NURSE PRACTITIONER ADULT HEALTH 02/03/24 05/09/24 [place] [id number] [address] PCP - General Nurse Practitioner Family 06/09/2410/20 [place] [id number] [address] [place], [place] [id number] PCP - General INTERNAL MEDICINE 11/03/24 documented as of this encounter
--- OUTSIDE RECORDS SUMMARY | 2024-12-22 12:07 | XMS_ITS | Data Portability ---
Author Organization [facility] GIANNIMariano Address [address] [place] [address] Assessment Encounter Date Assessment Date Assessment LastModified by Organization Details LastModified Time 12/09/2024 12/09/2024 Mr. Apodaca is a 34-year-old male presenting for establishment of care. He moved to the area one year ago. Past medical history includes chronic sinusitis, hypertension, hidradenitis suppurativa with recurrent boils in the groin, scrotal eczema, left ventricular hypertrophy (not evaluated by cardiology yet), anxiety, and depression. Patient had an EKG about a month ago but has not followed up with cardiology. He was treated for E. coli infection in June 2024. Currently, the patient is experiencing throat issues and is being evaluated by Dr. Mistry, who suspects acid reflux or GERD (symptoms began one year ago). The patient reports a mass on the left side of his throat and states he had his tonsils removed at 4-5 years old, but they grew back. He would like to see a new ENT specialist and has had CT scans done at [facility]. Additionally, he has a scheduled sleep apnea test on 12/13/[address] Hernandez. Not available 12/18/2024 14:16:13 Plan of Treatment Reminders Order Date Submit Date Provider Last Modified By Organization Details Last Modified Time Details Appointments ANY 15 2024 09:30A Galdino HORTON NP Not available Not available Not available Lab CBC w/ auto diff 2024 025 [facility], [address] [facility] [address], [place], [address], 12/10/2024 05:09:57 Referral dermatol [facility]ist [facility], [place], [address], 12/22/2024 13:01:21 cardiolo gist referral 2024 025 JOSE M Boston MD, [address], [place], [address], 12/15/2024 12:05:58 Procedures None recorded . Surgeries None recorded . Imaging CT, neck, soft tissue, w/ contrast 2023 024 ewa Dobbins (Radiology), [address] [facility] , [place], [address], 02/10/2024 09:51:31 Medication Orders amoxicil karlee 875 mg-potas sium clavulan ate 125 mg tablet 2023 024 [facility] [address] [place], [address], 01/27/2024 11:38:35 Patient TargetsNo targets recorded. Patient Instructions Encounter Date Encounter Id Patient Instructions Last Modified By Organization Details Last Modified Time 12/09/2024 [id number] A healthy lifestyle: care instructions Not available 12/09/2024 11:10:21 Quitting Tobacco : Care Instructions Not available 12/09/2024 11:10:21 - limit/avoid consumption of processed foods. choose a diet rich in fruits, and vegetables, low fat, low carbs. - Eat less salt (sodium) - exercise for at least 30 minutes a day on most days of the week - Limit the amount of caffeine and alcohol you drink - work on obtaining and maintaining a healthy weight Not available 12/18/2024 14:13:47 - Always present to ER or Urgent Care with any progression of/alarming symptoms, significant changes in symptoms or any concerning or urgent matters Not available 12/09/2024 10:20:40 Reason for Referral Pathologist Assistant Referral for Le ft ventricular hypertrophy Referring Physician: Jess Horton, Family Medicine, Encounter Date: 12/09/2024 Recreational Specialist Referral for H idradenitis suppurativa [facility] En[facility] Date: 12/09/2024 Results Created Date Observation Date Name Description Value Unit Range Abnormal Flag Note LastModifiedBy Organization Detail LastModifiedTime 02/10/20 24 02/10/2024 Thyro xine (T4) free [Mass /volu me] in Serum or Plasm a thyroxine (T4) free [mass/volume ] in serum or plasma 1.05 text: 0.76 - 1.46 NG/dL FREE T4 1.05 0.76 - 1.46 NG/DL 02/09 2:03 PM CDT [facility] Not Available Not Available 12/09/2024 03:07:02 02/10/20 24 02/10/2024 Thyro tropi n [Unit s/vol ume] in Serum or Plasm a thyrotropin [units/volum e] in serum or plasma 0.205 text: 0.358 - 3.74 uIU/mL low TSH 0.205 (L) 0.358 - 3.74 uIU/M L 02/09 1:05 PM CDT [facility] Not Available Not Available 12/09/2024 03:07:01 02/10/20 24 02/10/2024 Thyro tropi n [Unit s/vol ume] in Serum or Plasm a interpretati on and review of laboratory results ABNORM AL Not Available Not Available 03:07:01 02/10/20 24 02/10/2024 Lipid 1996 panel - Serum or Plasm a cholesterol [mass/volume ] in serum or plasma 275 text: <200.0 mg/dL high RADHA STERO L 275 (H) <200. 0 MG/DL 02/09 1:05 PM CDT [facility] Not Available Not Available 12/09/2024 03:07:01 02/10/20 24 02/10/2024 Lipid 1996 panel - Serum or Plasm a triglyceride [mass/volume ] in serum or plasma 115 text: <150 mg/dL TRIGL YCERI MARGARITO 115 <150 MG/DL 02/09 1:05 PM CDT [facility] Not Available Not Available 12/09/2024 03:07:01 02/10/20 24 02/10/2024 Lipid 1996 panel - Serum or Plasm a cholesterol in HDL [mass/volume ] in serum or plasma 47 text: >40.0 mg/dL HDL 47 >40.0 MG/DL 02/09 1:05 PM CDT [facility] ([facility] Not Available Not Available 12/09/2024 03:07:01 02/10/20 24 02/10/2024 Lipid 1996 panel - Serum or Plasm a cholesterol in LDL [mass/volume ] in serum or plasma by calculation 205 text: <100 mg/dL high LDL (CALC ULATE D) 205 (H) <100 MG/DL 02/09 1:05 PM CDT [facility] Not Available Not Available 12/09/2024 03:07:01 02/10/20 24 02/10/2024 Lipid 1996 panel - Serum or Plasm a cholesterol non HDL [mass/volume ] in serum or plasma 228 text: <130 mg/dL high NON HDL RADHA STERO L 228 (H) <130 MG/DL 02/09 1:05 PM CDT [facility] Not Available Not Available 12/09/2024 03:07:01 02/10/20 24 02/10/2024 Lipid 1996 panel - Serum or Plasm a cholesterol. total/choles terol in HDL [mass ratio] in serum or plasma 5.9 low: 0high: 4.5 high CHOL/ HDL RATIO 5.9 (H) 0.0 - 4.5 02/09 1:05 PM CDT [facility] Not Available Not Available 12/09/2024 03:07:01 02/10/20 24 02/10/2024 Lipid 1996 panel - Serum or Plasm a cholesterol in VLDL [mass/volume ] in serum or plasma by calculation 23 text: 5 - 55 mg/dL VLDL CALCU LATIO N 23 5 - 55 MG/DL 02/09 1:05 PM CDT [facility] Not Available Not Available 12/09/2024 03:07:01 02/10/20 24 02/10/2024 Lipid 1996 panel - Serum or Plasm a service comment LIPID INTER PRETA TION 02/09 1:05 PM CDT [facility] Not Available Not Available 12/09/2024 03:07:01 02/10/20 24 02/10/2024 Lipid 1996 panel - Serum or Plasm a interpretati on and review of laboratory results ABNORM AL Not Available Not Available 03:07:01 02/10/20 24 02/10/2024 Basic metab olic 2000 panel - Serum or Plasm a glucose [mass/volume ] in serum or plasma 110 text: 70 - 99 mg/dL high GLUCO SE 110 (H) 70 - 99 MG/DL 02/09 1:05 PM CDT [facility] Not Available Not Available 12/09/2024 03:07:01 02/10/20 24 02/10/2024 Basic metab olic 2000 panel - Serum or Plasm a urea nitrogen [mass/volume ] in serum or plasma 11 text: 7 - 18 mg/dL BUN 11 7 - 18 MG/DL 02/09 1:05 PM CDT [facility] Not Available Not Available 12/09/2024 03:07:01 02/10/20 24 02/10/2024 Basic metab olic 2000 panel - Serum or Plasm a creatinine [mass/volume ] in serum or plasma 0.82 text: 0.7 - 1.3 mg/dL CREAT ININE S/P/B 0.82 0.7 - 1.3 MG/DL 02/09 1:05 PM CDT [facility] Not Available Not Available 12/09/2024 03:07:01 02/10/20 24 02/10/2024 Basic metab olic 1999 panel - Serum or Plasm a sodium [moles/volum e] in serum or plasma 142 text: 136 - 145 mmol/L SODIU M S/P/B 142 136 - 145 MMOL/ L 02/09 1:05 PM CDT [facility] (H) [facility] Not Available Not Available 12/09/2024 03:07:01 02/10/20 24 02/10/2024 Basic metab olic 1999 panel - Serum or Plasm a potassium [moles/volum e] in serum or plasma 5.1 text: 3.5 - 5.1 mmol/L POTAS SIUM S/P/B 5.1 3.5 - 5.1 MMOL/ L 02/09 1:05 PM CDT [facility] (H) [facility] Not Available Not Available 12/09/2024 03:07:01 02/10/20 24 02/10/2024 Basic metab olic 2000 panel - Serum or Plasm a chloride [moles/volum e] in serum or plasma 104 text: 100 - 108 mmol/L CHLOR KEI S/P/B 104 100 - 108 MMOL/ L 02/09 1:05 PM CDT [facility] (H) [facility] Not Available Not Available 12/09/2024 03:07:01 02/10/20 24 02/10/2024 Basic metab olic 2000 panel - Serum or Plasm a carbon dioxide, total [moles/volum e] in serum or plasma 26.6 text: 21 - 32 mmol/L CO2 26.6 21 - 32 MMOL/ L 02/09 1:05 PM CDT [facility] (H) [facility] Not Available Not Available 12/09/2024 03:07:01 02/10/20 24 02/10/2024 Basic metab olic 2000 panel - Serum or Plasm a calcium [mass/volume ] in serum or plasma 9.6 text: 8.5 - 10.1 mg/dL CALCI UM S/P/B 9.6 8.5 - 10.1 MG/DL 02/09 1:05 [address] [facility] Not Available Not Available 12/09/2024 03:07:01 02/10/20 24 02/10/2024 Basic metab olic 2000 panel - Serum or Plasm a anion gap in serum or plasma 11.4 text: 5 - 15 mmol/L ANION GAP 11.4 5 - 15 MMOL/ L 02/09 1:05 PM CDT [facility] Not Available Not Available 12/09/2024 03:07:01 02/10/20 24 02/10/2024 Basic metab olic 2000 panel - Serum or Plasm a urea nitrogen/cre atinine [mass ratio] in serum or plasma 13.4 low: 6high: 26 BUN CREAT ININE RATIO 13.4 6 - 26 02/09 1:05 PM CDT [facility] Not Available Not Available 12/09/2024 03:07:01 02/10/20 24 02/10/2024 Basic metab olic 2000 panel - Serum or Plasm a glomerular filtration rate/1.73 sq M.predicted [volume rate/area] in serum, plasma or blood by creatinine-b ased formula (CKD-epi 2020) >90 text: >90 mL/min /1.73 M2 GFR ESTIM ATE >90 >90 ML/NC N/1.7 3 M2 02/09 1:05 PM CDT [facility] ([facility] Not Available Not Available 12/09/2024 03:07:01 02/10/20 24 02/10/2024 Basic metab olic 2000 panel - Serum or Plasm a interpretati on and review of laboratory results ABNORM AL Not Available Not Available 03:07:01 02/10/20 24 02/10/2024 CBC W Auto Diffe tricia al panel - Blood leukocytes [#/volume] in blood by automated count 21.07 text: 4.4 - 11.0 x10'3/ uL high WBC 21.07 (H) 4.4 - 11.0 x10'3 /uL 02/09 12:45 PM CDT [facility] Not Available Not Available 12/09/2024 03:07:01 02/10/20 24 02/10/2024 CBC W Auto Diffe renti al panel - Blood erythrocytes [#/volume] in blood by automated count 5.69 text: 4.50 - 5.90 x10'6/ uL RBC 5.69 4.50 - 5.90 x10'6 /uL 02/09 12:45 PM CDT [facility] Not Available Not Available 12/09/2024 03:07:01 02/10/20 24 02/10/2024 CBC W Auto Diffe renti al panel - Blood hemoglobin [mass/volume ] in blood 18.4 text: 14.0 - 17.5 g/dL high HGB 18.4 (H) 14.0 - 17.5 G/DL 02/09 12:45 PM CDT [facility] Not Available Not Available 12/09/2024 03:07:01 02/10/20 24 02/10/2024 CBC W Auto Diffe renti al panel - Blood hematocrit [volume fraction] of blood 53.7 % low: 41.5%h igh: 50.4% high HCT 53.7 (H) 41.5 - 50.4 % 02/09 12:45 PM CDT [facility] Not Available Not Available 12/09/2024 03:07:01 02/10/20 24 02/10/2024 CBC W Auto Diffe renti al panel - Blood MCV [entitic volume] 94.4 text: 80.0 - 96.0 fL MCV 94.4 80.0 - 96.0 FL 02/09 12:45 PM CDT [facility] Not Available Not Available 12/09/2024 03:07:01 02/10/20 24 02/10/2024 CBC W Auto Diffe renti al panel - Blood MCH [entitic mass] 32.3 pg low: 26.5pg high: 31.4pg high MCH 32.3 (H) 26.5 - 31.4 PG 02/09 12:45 PM CDT [facility] Not Available Not Available 12/09/2024 03:07:01 02/10/20 24 02/10/2024 CBC W Auto Diffe renti al panel - Blood MCHC [mass/volume ] 34.3 text: 31.9 - 34.8 g/dL MCHC 34.3 31.9 - 34.8 G/DL 02/09 12:45 PM CDT [facility] Not Available Not Available 12/09/2024 03:07:01 02/10/20 24 02/10/2024 CBC W Auto Diffe renti al panel - Blood erythrocyte distribution width [entitic volume] by automated count 13.2 % low: 12.3%h igh: 14.3% RDW 13.2 12.3 - 14.3 % 02/09 12:45 PM CDT [facility] Not Available Not Available 12/09/2024 03:07:01 02/10/20 24 02/10/2024 CBC W Auto Diffe renti al panel - Blood platelets [#/volume] in blood 375 text: 151 - 353 x10'3/ uL high PLT 375 (H) 151 - 353 x10'3 /uL 02/09 12:45 PM CDT [facility] Not Available Not Available 12/09/2024 03:07:01 02/10/20 24 02/10/2024 CBC W Auto Diffe renti al panel - Blood platelet mean volume [entitic volume] in blood 11 text: 9.7 - 11.9 fL MPV 11.0 9.7 - 11.9 FL 02/09 12:45 PM CDT [facility] Not Available Not Available 12/09/2024 03:07:01 02/10/20 24 02/10/2024 CBC W Auto Diffe renti al panel - Blood erythrocytes [morphology] in blood by automated count NORMAL RBC MORPH OLOGY AYAKA L 02/09 12:45 PM CDT [facility] Not Available Not Available 12/09/2024 03:07:01 02/10/20 24 02/10/2024 CBC W Auto Diffe renti al panel - Blood platelet morphology finding [identifier] in blood NORMAL PLT MORPH . AYAKA L 02/09 12:45 PM CDT [facility] Not Available Not Available 12/09/2024 03:07:01 02/10/20 24 02/10/2024 CBC W Auto Diffe renti al panel - Blood leukocyte morphology finding [identifier] in blood NORMAL WBC MORPH OLOGY AYAKA L 02/09 12:45 PM CDT [facility] Not Available Not Available 12/09/2024 03:07:01 02/10/20 24 02/10/2024 CBC W Auto Diffe renti al panel - Blood lymphocytes/ 100 leukocytes in blood by automated count 15.1 % low: 15.8%h igh: 45% low LYMPH OCYTE S % 15.1 (L) 15.8 - 45.0 % 02/09 12:45 PM CDT [facility] Not Available Not Available 12/09/2024 03:07:01 02/10/20 24 02/10/2024 CBC W Auto Diffe renti al panel - Blood neutrophils/ 100 leukocytes in blood by automated count 79.4 % low: 42.1%h igh: 71.9% high NEUTR OPHIL S % 79.4 (H) 42.1 - 71.9 % 02/09 12:45 PM CDT [facility] Not Available Not Available 12/09/2024 03:07:01 02/10/20 24 02/10/2024 CBC W Auto Diffe renti al panel - Blood monocytes/10 0 leukocytes in blood by automated count 4.7 % low: 5.7%hi gh: 12.5% low MONOC YTES % 4.7 (L) 5.7 - 12.5 % 02/09 12:45 PM CDT [facility] () [facility] Not Available Not Available 12/09/2024 03:07:01 02/10/20 24 02/10/2024 CBC W Auto Diffe renti al panel - Blood eosinophils/ 100 leukocytes in blood by automated count 0.1 % low: 0%high : 5.6% EOSIN OPHIL S 0.1 0.0 - 5.6 % 02/09 12:45 PM CDT [facility] Not Available Not Available 12/09/2024 03:07:01 02/10/20 24 02/10/2024 CBC W Auto Diffe renti al panel - Blood basophils/10 0 leukocytes in blood by automated count 0.2 % low: 0%high : 1.3% BASOP HILS 0.2 0.0 - 1.3 % 02/09 12:45 PM CDT [facility] Not Available Not Available 12/09/2024 03:07:01 02/10/20 24 02/10/2024 CBC W Auto Diffe renti al panel - Blood neutrophils [#/volume] in blood 16.71 text: 1.40 - 6.00 x10'3/ uL high ABS. NEUTR OPHIL S 16.71 (H) 1.40 - 6.00 x10'3 /uL 02/09 12:45 PM CDT [facility] () [facility] Not Available Not Available 12/09/2024 03:07:01 02/10/20 24 02/10/2024 CBC W Auto Diffe renti al panel - Blood immature granulocytes /100 leukocytes in blood by automated count 0.5 % low: 0%high : 0.5% IMMAT URE GRANS % 0.5 0.0 - 0.5 % 02/09 12:45 PM CDT [facility] Not Available Not Available 12/09/2024 03:07:01 02/10/20 24 02/10/2024 CBC W Auto Diffe renti al panel - Blood lymphocytes [#/volume] in blood 3.18 text: 0.80 - 4.70 x10'3/ uL ABS. LYMPH OCYTE S 3.18 0.80 - 4.70 x10'3 /uL 02/09 12:45 PM CDT [facility] Not Available Not Available 12/09/2024 03:07:01 02/10/20 24 02/10/2024 CBC W Auto Diffe tricia beck panel - Blood interpretati on and review of laboratory results ABNORM AL Not Available Not Available 03:07:01 02/10/20 24 02/14/2024 Testo stero ne [Mass /volu me] in Serum or Plasm a testosterone [mass/volume ] in serum or plasma 361 NG/dL low: 250NG/ dLhigh : 1100NG /dL TESTO STERO NE TOTAL 361 250 - 1,100 ng/dL 02/13 12:17 PM CDT [facility] Not Available Not Available 12/09/2024 03:07:01 02/10/20 24 02/14/2024 Testo stero ne [Mass /volu me] in Serum or Plasm a testosterone free [mass/volume ] in serum or plasma 59.9 pg/mL low: 35pg/m Lhigh: 155pg/ mL TESTO STERO NE FREE 59.9 35.0 - 155.0 pg/mL 02/13 12:17 PM CDT [facility] Not Available Not Available 12/09/2024 03:07:01 02/10/20 24 02/10/2024 Hemog lobin A1c/H emogl obin. total in Blood hemoglobin A1C/hemoglob in.total in blood 5.4 % high: 5.7% HGB A1C 5.4 <5.7 % 02/09 1:08 PM CDT [facility] Not Available Not Available 12/09/2024 03:07:01 02/10/20 24 02/10/2024 Hemog lobin A1c/H emogl obin. total in Blood glucose mean value [mass/volume ] in blood estimated from glycated hemoglobin 108 mg/dL ESTIM ATED AVG GLUCO SE 108 mg/dL 02/09 1:08 PM CDT [facility] Not Available Not Available 12/09/2024 03:07:01 02/10/20 24 02/10/2024 Prost ate speci fic Ag [Mass /volu me] in Serum or Plasm a prostate specific Ag [mass/volume ] in serum or plasma 0.63 text: <4.00 NG/mL PSA 0.63 <4.00 NG/ML 02/09 1:20 PM CDT [facility] Not Available Not Available 12/09/2024 03:07:01 02/10/20 24 02/10/2024 Acute hepat itis 2000 panel - Serum hepatitis B virus surface Ag [presence] in serum NON-RE ACTIVE text: non-re active HEPAT ITIS B SURFA CE AG NON-R EACTI VE NON-R EACTI VE 02/09 3:49 PM CDT [facility] Not Available Not Available 12/09/2024 03:07:01 02/10/20 24 02/10/2024 Acute hepat itis 2000 panel - Serum hepatitis B virus core IgM Ab [presence] in serum NON-RE ACTIVE text: non-re active HEP B CORE IGM NON-R EACTI VE NON-R EACTI VE 02/09 3:49 PM CDT [facility] Not Available Not Available 12/09/2024 03:07:01 02/10/20 24 02/10/2024 Acute hepat itis 2000 panel - Serum hepatitis A virus IgM Ab [presence] in serum NON-RE ACTIVE text: non-re active HAV IGM NON-R EACTI VE NON-R EACTI VE 02/09 3:49 PM [facility]T [facility] Not Available Not Available 12/09/2024 03:07:01 02/10/20 24 02/10/2024 Acute hepat itis 2000 panel - Serum hepatitis C virus Ab [presence] in serum NON-RE ACTIVE text: non-re active HEPAT ITIS C AB NON-R EACTI VE NON-R EACTI VE 02/09 3:49 PM CDT [facility] Not Available Not Available 12/09/2024 03:07:01 02/10/20 24 02/10/2024 HIV 1+2 Ab [Pres ence] in Serum HIV 1+2 Ab [presence] in serum NON-RE ACTIVE text: non-re active HIV 1/2 AB+ HIV1 P24 AG NON-R EACTI VE NON-R EACTI VE 02/09 3:43 PM CDT [facility] Not Available Not Available 12/09/2024 03:07:01 02/10/20 24 02/10/2024 Trepo nema palli dum IgG Ab [Pres ence] in Serum treponema pallidum IgG Ab [presence] in serum NON-RE ACTIVE text: non-re active SYPHI LIS IGG AB NON-R EACTI VE NON-R EACTI VE 02/09 3:13 PM CDT [facility] Not Available Not Available 12/09/2024 03:07:01 02/10/20 24 02/13/2024 Chlam ydia trach omati s and Neiss eria gonor rhoea e DNA panel - Speci men specimen site narrative URINE SPECI MEN SOURC E URINE 02/09 12:17 PM CDT [facility] (H) [facility] Not Available Not Available 12/09/2024 03:07:01 02/10/20 24 02/13/2024 Chlam ydia trach omati s and Neiss eria gonor rhoea e DNA panel - Speci men chlamydia trachomatis rrna [presence] in specimen by probe NEGATI VE text: negati ve CHLAM YDIA PCR NEGAT ELROY NEGAT ELROY 02/12 12:[address] AM [address] [facility] (D) [facility] Not Available Not Available 12/09/2024 03:07:01 02/10/20 24 02/13/2024 Chlam ydia trach omati s and Neiss eria gonor rhoea e DNA panel - Speci men neisseria gonorrhoeae rrna [presence] in specimen by probe NEGATI VE text: negati ve N.RON ORRHO EAE RNA TMA NEGAT ELROY NEGAT ELROY 02/12 12:35 AM CD[address] [facility] (D) [facility] Not Available Not Available 12/09/2024 03:07:01 02/10/20 24 02/13/2024 Chlam ydia trach omati s and Neiss eria gonor rhoea e DNA panel - Speci men trichomonas vaginalis DNA [presence] in vaginal fluid by probe with signal amplificatio n NEGATI VE text: negati ve TRICH OMONA S NEGAT ELROY NEGAT ELROY 02/12 12:35 AM CD[address] [facility] ([facility]) [facility] Not Available Not Available 12/09/2024 03:07:01 06/09/20 24 06/09/2024 Lipid 1996 panel - Serum or Plasm a cholesterol [mass/volume ] in serum or plasma 264 text: <200.0 mg/dL high RADHA STERO L 264 (H) <200. 0 MG/DL 06/09 12:59 PM CDT [facility] (H) [facility] Not Available Not Available 12/09/2024 09:59:25 06/09/20 24 06/09/2024 Lipid 1995 panel - Serum or Plasm a triglyceride [mass/volume ] in serum or plasma 135 text: <150 mg/dL TRIGL YCERI MARGARITO 135 <150 MG/DL 06/09 12:59 PM CDT [facility] ([facility]) [facility] Not Available Not Available 12/09/2024 09:59:25 06/09/20 24 06/09/2024 Lipid 1996 panel - Serum or Plasm a cholesterol in HDL [mass/volume ] in serum or plasma 37 text: >40.0 mg/dL low HDL 37 (L) >40.0 MG/DL 06/09 12:59 PM CDT [facility] ([facility]) [facility] Not Available Not Available 12/09/2024 09:59:25 06/09/20 24 06/09/2024 Lipid 1996 panel - Serum or Plasm a cholesterol in LDL [mass/volume ] in serum or plasma by calculation 200 text: <100 mg/dL high LDL (CALC ULATE D) 200 (H) <100 MG/DL 06/09 12:59 PM CDT [facility] Not Available Not Available 12/09/2024 09:59:25 06/09/20 24 06/09/2024 Lipid 1995 panel - Serum or Plasm a cholesterol non HDL [mass/volume ] in serum or plasma 227 text: <130 mg/dL high NON HDL RADHA STERO L 227 (H) <130 MG/DL 06/09 12:59 PM CDT [facility] Not Available Not Available 12/09/2024 09:59:25 06/09/20 24 06/09/2024 Lipid 1995 panel - Serum or Plasm a cholesterol. total/choles terol in HDL [mass ratio] in serum or plasma 7.1 low: 0high: 4.5 high CHOL/ HDL RATIO 7.1 (H) 0.0 - 4.5 06/09 12:59 PM CDT [facility] Not Available Not Available 12/09/2024 09:59:25 06/09/20 24 06/09/2024 Lipid 1996 panel - Serum or Plasm a cholesterol in VLDL [mass/volume ] in serum or plasma by calculation 27 text: 5 - 55 mg/dL VLDL CALCU LATIO N 27 5 - 55 MG/DL 06/09 12:59 PM CDT [facility] Not Available Not Available 12/09/2024 09:59:25 06/09/20 24 06/09/2024 Lipid 1996 panel - Serum or Plasm a service comment LIPID INTER PRETA TION 06/09 12:59 PM CDT [facility] Not Available Not Available 12/09/2024 09:59:25 06/09/20 24 06/09/2024 Lipid 1996 panel - Serum or Plasm a interpretati on and review of laboratory results ABNORM AL Not Available Not Available 09:59:25 06/09/20 24 06/09/2024 Thyro tropi n [Unit s/vol ume] in Serum or Plasm a thyrotropin [units/volum e] in serum or plasma 0.655 text: 0.358 - 3.74 uIU/mL TSH 0.655 0.358 - 3.74 uIU/M L 06/09 12:59 PM CDT [facility] Not Available Not Available 12/09/2024 09:59:25 06/09/20 24 06/09/2024 CBC W Auto Diffe renannie al panel - Blood leukocytes [#/volume] in blood by automated count 17.12 text: 4.4 - 11.0 x10'3/ uL high WBC 17.12 (H) 4.4 - 11.0 x10'3 /uL 06/09 12:40 PM CDT [facility] Not Available Not Available 12/09/2024 09:59:25 06/09/20 24 06/09/2024 CBC W Auto Diffe tricia al panel - Blood erythrocytes [#/volume] in blood by automated count 5.65 text: 4.50 - 5.90 x10'6/ uL RBC 5.65 4.50 - 5.90 x10'6 /uL 06/09 12:40 PM CDT [facility] Not Available Not Available 12/09/2024 09:59:25 06/09/20 24 06/09/2024 CBC W Auto Diffe renannie al panel - Blood hemoglobin [mass/volume ] in blood 18.2 text: 14.0 - 17.5 g/dL high HGB 18.2 (H) 14.0 - 17.5 G/DL 06/09 12:40 PM CDT [facility] Not Available Not Available 12/09/2024 09:59:25 06/09/20 24 06/09/2024 CBC W Auto Diffe renti al panel - Blood hematocrit [volume fraction] of blood 52.9 % low: 41.5%h igh: 50.4% high HCT 52.9 (H) 41.5 - 50.4 % 06/09 12:40 PM CDT [facility] Not Available Not Available 12/09/2024 09:59:25 06/09/20 24 06/09/2024 CBC W Auto Diffe renti al panel - Blood MCV [entitic volume] 93.6 text: 80.0 - 96.0 fL MCV 93.6 80.0 - 96.0 FL 06/09 12:40 PM CDT [facility] Not Available Not Available 12/09/2024 09:59:25 06/09/20 24 06/09/2024 CBC W Auto Diffe tricia al panel - Blood MCH [entitic mass] 32.2 pg low: 26.5pg high: 31.4pg high MCH 32.2 (H) 26.5 - 31.4 PG 06/09 12:40 PM CDT [facility] Not Available Not Available 12/09/2024 09:59:25 06/09/20 24 06/09/2024 CBC W Auto Diffe tricia al panel - Blood MCHC [mass/volume ] 34.4 text: 31.9 - 34.8 g/dL MCHC 34.4 31.9 - 34.8 G/DL 06/09 12:40 PM CDT [facility] Not Available Not Available 12/09/2024 09:59:25 06/09/20 24 06/09/2024 CBC W Auto Diffe tricia al panel - Blood erythrocyte distribution width [entitic volume] by automated count 12.9 % low: 12.3%h igh: 14.3% RDW 12.9 12.3 - 14.3 % 06/09 12:40 PM CDT [facility] Not Available Not Available 12/09/2024 09:59:25 06/09/20 06/09/2024 CBC W Auto Diffe renti al panel - Blood platelets [#/volume] in blood 336 text: 151 - 353 x10'3/ uL PLT 336 151 - 353 x10'3 /uL 06/09 12:40 PM CDT [facility] Not Available Not Available 12/09/2024 09:59:25 06/09/20 24 06/09/2024 CBC W Auto Diffe renti al panel - Blood platelet mean volume [entitic volume] in blood 10.9 text: 9.7 - 11.9 fL MPV 10.9 9.7 - 11.9 FL 06/09 12:40 PM CDT [facility] Not Available Not Available 12/09/2024 09:59:25 06/09/20 24 06/09/2024 CBC W Auto Diffe renti al panel - Blood erythrocytes [morphology] in blood by automated count NORMAL RBC MORPH OLOGY AYAKA L 06/09 12:40 PM CDT [facility] Not Available Not Available 12/09/2024 09:59:25 06/09/20 24 06/09/2024 CBC W Auto Diffe renti al panel - Blood platelet morphology finding [identifier] in blood NORMAL PLT MORPH . AYAKA L 06/09 12:40 PM CDT [facility] Not Available Not Available 12/09/2024 09:59:25 06/09/20 24 06/09/2024 CBC W Auto Diffe renti al panel - Blood leukocyte morphology finding [identifier] in blood NORMAL WBC MORPH OLOGY AYAKA L 06/09 12:40 PM CDT [facility] Not Available Not Available 12/09/2024 09:59:25 06/09/20 24 06/09/2024 CBC W Auto Diffe renti al panel - Blood lymphocytes/ 100 leukocytes in blood by automated count 22.3 % low: 15.8%h igh: 45% LYMPH OCYTE S % 22.3 15.8 - 45.0 % 06/09 12:40 PM CDT [facility] Not Available Not Available 12/09/2024 09:59:25 06/09/20 24 06/09/2024 CBC W Auto Diffe renti al panel - Blood neutrophils/ 100 leukocytes in blood by automated count 66.6 % low: 42.1%h igh: 71.9% NEUTR OPHIL S % 66.6 42.1 - 71.9 % 06/09 12:40 PM CDT [facility] () [facility] Not Available Not Available 12/09/2024 09:59:25 06/09/20 24 06/09/2024 CBC W Auto Diffe renti al panel - Blood monocytes/10 0 leukocytes in blood by automated count 8.9 % low: 5.7%hi gh: 12.5% MONOC YTES % 8.9 5.7 - 12.5 % 06/09 12:40 PM CDT [facility] () [facility] Not Available Not Available 12/09/2024 09:59:25 06/09/20 24 06/09/2024 CBC W Auto Diffe renti al panel - Blood eosinophils/ 100 leukocytes in blood by automated count 1.3 % low: 0%high : 5.6% EOSIN OPHIL S 1.3 0.0 - 5.6 % 06/09 12:40 PM CDT [facility] () [facility] Not Available Not Available 12/09/2024 09:59:25 06/09/20 24 06/09/2024 CBC W Auto Diffe renti al panel - Blood basophils/10 0 leukocytes in blood by automated count 0.5 % low: 0%high : 1.3% BASOP HILS 0.5 0.0 - 1.3 % 06/09 12:40 PM CDT [facility] Not Available Not Available 12/09/2024 09:59:25 06/09/20 24 06/09/2024 CBC W Auto Diffe renti al panel - Blood neutrophils [#/volume] in blood 11.41 text: 1.40 - 6.00 x10'3/ uL high ABS. NEUTR OPHIL S 11.41 (H) 1.40 - 6.00 x10'3 /uL 06/09 12:40 PM CDT [facility] ([facility] Not Available Not Available 12/09/2024 09:59:25 06/09/20 24 06/09/2024 CBC W Auto Diffe renti al panel - Blood immature granulocytes /100 leukocytes in blood by automated count 0.4 % low: 0%high : 0.5% IMMAT URE GRANS % 0.4 0.0 - 0.5 % 06/09 12:40 PM CDT [facility] ([facility] Not Available Not Available 12/09/2024 09:59:25 06/09/20 24 06/09/2024 CBC W Auto Diffe renti al panel - Blood lymphocytes [#/volume] in blood 3.81 text: 0.80 - 4.70 x10'3/ uL ABS. LYMPH OCYTE S 3.81 0.80 - 4.70 x10'3 /uL 06/09 12:40 PM CDT [facility] ([facility] Not Available Not Available 12/09/2024 09:59:25 06/09/20 24 06/09/2024 CBC W Auto Diffe renti al panel - Blood interpretati on and review of laboratory results ABNORM AL Not Available Not Available 09:59:25 06/15/20 24 06/17/2024 Bacte jose ident ified in Throa t by Aerob e cultu re specimen source identified THROAT SPEC DESCR IPTIO N THROA T 06/15 12:45 PM CDT [facility] ([facility] Not Available Not Available 12/09/2024 09:59:22 06/15/20 24 06/17/2024 Bacte jose ident ified in Throa t by Aerob e cultu re service comment NO SPECIA L REQUES T SPECI AL REQUE STS NO SPECI AL REQUE ST 06/15 12:45 PM CDT [facility] ([facility] Not Available Not Available 12/09/2024 09:59:22 06/15/20 24 06/17/2024 Bacte jose ident ified in Throa t by Aerob e cultu re bacteria identified in specimen by culture LIGHT GROWTH OF NORMAL SARAH PRESEN T CULTU RE RESUL T LIGHT GROWT H OF AYAKA L SARAH PRESE NT 06/17 7:06 AM CDT [facility] Not Available Not Available 12/09/2024 09:59:22 11/11/19 25 11/11/2024 Compr ehens elroy metab olic 2000 panel - Serum or Plasm a glucose [mass/volume ] in serum or plasma 84 text: 70 - 99 mg/dL GLUCO SE 84 70 - 99 MG/DL 11/11 1:40 PM MANAGER [employer] [facility] () [facility] Not Available Not Available 12/09/2024 09:59:21 11/11/19 25 11/11/2024 Compr ehens elroy metab olic 2000 panel - Serum or Plasm a urea nitrogen [mass/volume ] in serum or plasma 8 text: 7 - 18 mg/dL BUN 8 7 - 18 MG/DL 11/11 1:40 PM MANAGER [employer] [facility] ([facility] Not Available Not Available 12/09/2024 09:59:21 11/11/19 25 11/11/2024 Compr ehens elroy metab olic 2000 panel - Serum or Plasm a creatinine [mass/volume ] in serum or plasma 1.01 text: 0.7 - 1.3 mg/dL CREAT ININE S/P/B 1.01 0.7 - 1.3 MG/DL 11/11 1:40 PM [facility] ([facility] Not Available Not Available 12/09/2024 09:59:21 11/11/19 25 11/11/2024 Compr ehens elroy metab olic 2000 panel - Serum or Plasm a sodium [moles/volum e] in serum or plasma 143 text: 136 - 145 mmol/L SODIU M S/P/B 143 136 - 145 MMOL/ L 11/11 1:40 PM MANAGER [employer] [facility] Not Available Not Available 12/09/2024 09:59:21 11/11/19 25 11/11/2024 Compr ehens elroy metab olic 1999 panel - Serum or Plasm a potassium [moles/volum e] in serum or plasma 4.9 text: 3.5 - 5.1 mmol/L POTAS SIUM S/P/B 4.9 3.5 - 5.1 MMOL/ L 11/11 1:40 PM MANAGER [employer] [facility] Not Available Not Available 12/09/2024 09:59:21 11/11/19 25 11/11/2024 Compr ehens elroy metab olic 1999 panel - Serum or Plasm a chloride [moles/volum e] in serum or plasma 107 text: 100 - 108 mmol/L CHLOR KEI S/P/B 107 100 - 108 MMOL/ L 11/11 1:40 PM MANAGER [employer] [facility] Not Available Not Available 12/09/2024 09:59:21 11/11/19 25 11/11/2024 Compr ehens elroy metab olic 1999 panel - Serum or Plasm a carbon dioxide, total [moles/volum e] in serum or plasma 26.8 text: 21 - 32 mmol/L CO2 26.8 21 - 32 MMOL/ L 11/11 1:40 PM MANAGER QU[employer]EMENT [facility] Not Available Not Available 12/09/2024 09:59:21 11/11/19 25 11/11/2024 Compr ehens elroy metab olic 2000 panel - Serum or Plasm a calcium [mass/volume ] in serum or plasma 9.8 text: 8.5 - 10.1 mg/dL CALCI UM S/P/B 9.8 8.5 - 10.1 MG/DL 11/11 1:40 PM MANAGER [employer] [facility] Not Available Not Available 12/09/2024 09:59:21 11/11/19 25 11/11/2024 Compr ehens elroy metab olic 2000 panel - Serum or Plasm a bilirubin.to alan [mass/volume ] in serum or plasma 0.5 text: 0.2 - 1.2 mg/dL BILIR UBIN TOTAL S/P/B 0.5 0.2 - 1.2 MG/DL 11/11 1:40 PM MANAGER [employer]EMENT [facility] Not Available Not Available 12/09/2024 09:59:21 11/11/19 25 11/11/2024 Compr ehens elroy metab olic 2000 panel - Serum or Plasm a protein [mass/volume ] in serum or plasma 7.3 text: 6.4 - 8.2 g/dL TOTAL PROTE IN S/P/B 7.3 6.4 - 8.2 G/DL 11/11 1:40 PM MANAGER QUAL[employer] IM[employer]OVEMENT [facility] Not Available Not Available 12/09/2024 09:59:21 11/11/19 25 11/11/2024 Compr ehens elroy metab olic 2000 panel - Serum or Plasm a albumin [mass/volume ] in serum or plasma 4.2 text: 3.4 - 5.0 g/dL ALBUM IN S/P/B 4.2 3.4 - 5.0 G/DL 11/11 1:40 PM MANAGER [employer] [facility] Not Available Not Available 12/09/2024 09:59:21 11/11/19 25 11/11/2024 Compr ehens elroy metab olic 2000 panel - Serum or Plasm a aspartate aminotransfe rase [enzymatic activity/vol ume] in serum or plasma 24 U/L low: 15U/Lh igh: 37U/L AST 24 15 - 37 U/L 11/11 1:40 PM MANAGER [employer] [facility] Not Available Not Available 12/09/2024 09:59:21 11/11/19 25 11/11/2024 Compr ehens elroy metab olic 2000 panel - Serum or Plasm a alanine aminotransfe rase [enzymatic activity/vol ume] in serum or plasma 54 U/L low: 16U/Lh igh: 60U/L ALT 54 16 - 60 U/L 11/11 1:40 PM MANAGER [employer] [facility] Not Available Not Available 12/09/2024 09:59:21 11/11/19 25 11/11/2024 Compr ehens elroy metab olic 2000 panel - Serum or Plasm a alkaline phosphatase [enzymatic activity/vol ume] in serum or plasma 75 U/L low: 50U/Lh igh: 136U/L ALKAL INE PHOSP HATAS E S/P/B 75 50 - 136 U/L 11/11 1:40 PM MANAGER [employer]EMENT [facility] Not Available Not Available 12/09/2024 09:59:21 11/11/19 25 11/11/2024 Compr ehens elroy metab olic 2000 panel - Serum or Plasm a anion gap in serum or plasma 9.2 text: 5 - 15 mmol/L ANION GAP 9.2 5 - 15 MMOL/ L 11/11 1:40 PM MANAGER QUAL[employer] IM[employer]OVEMENT [facility] Not Available Not Available 12/09/2024 09:59:21 11/11/19 25 11/11/2024 Compr ehens elroy metab olic 2000 panel - Serum or Plasm a urea nitrogen/cre atinine [mass ratio] in serum or plasma 7.9 low: 6high: 26 BUN CREAT ININE RATIO 7.9 6 - 26 11/11 1:40 PM MANAGER [employer]EMENT [facility] Not Available Not Available 12/09/2024 09:59:21 11/11/19 25 11/11/2024 Compr ehens elroy metab olic 2000 panel - Serum or Plasm a albumin/glob ulin [mass ratio] in serum or plasma 1.4 text: 1.0 - 2.0 ratio A/G RATIO 1.4 1.0 - 2.0 RATIO 11/11 1:40 PM MANAGER [employer]EMENT [facility] Not Available Not Available 12/09/2024 09:59:21 11/11/19 25 11/11/2024 Compr ehens elroy metab olic 1999 panel - Serum or Plasm a glomerular filtration rate/1.73 sq M.predicted [volume rate/area] in serum, plasma or blood by creatinine-b ased formula (CKD-epi 2020) >90 text: >90 mL/min /1.73 M2 GFR ESTIM ATE >90 >90 ML/NC N/1.7 3 M2 11/11 1:40 PM MANAGER [employer]EMENT [facility] Not Available Not Available 12/09/2024 09:59:21 11/11/19 25 11/11/2024 Lipid 1995 panel - Serum or Plasm a cholesterol [mass/volume ] in serum or plasma 230 text: <200.0 mg/dL high RADHA STERO L 230 (H) <200. 0 MG/DL 11/11 1:40 PM MANAGER [employer]OVEMENT [facility] Not Available Not Available 12/09/2024 09:59:21 11/11/19 25 11/11/2024 Lipid 1995 panel - Serum or Plasm a triglyceride [mass/volume ] in serum or plasma 90 text: <150 mg/dL TRIGL YCERI MARGARITO 90 <150 MG/DL 11/11 1:40 PM MANAGER QUALITY IMPROVEMENT [facility] [employer] [facility] Not Available Not Available 12/09/2024 09:59:21 11/11/19 25 11/11/2024 Lipid 1996 panel - Serum or Plasm a cholesterol in HDL [mass/volume ] in serum or plasma 36 text: >40.0 mg/dL low HDL 36 (L) >40.0 MG/DL 11/11 1:40 PM MANAGER [employer]EMENT [facility] Not Available Not Available 12/09/2024 09:59:21 11/11/19 25 11/11/2024 Lipid 1996 panel - Serum or Plasm a cholesterol in LDL [mass/volume ] in serum or plasma by calculation 176 text: <100 mg/dL high LDL (CALC ULATE D) 176 (H) <100 MG/DL 11/11 1:40 PM MANAGER [employer]EMENT [facility] Not Available Not Available 12/09/2024 09:59:21 11/11/19 25 11/11/2024 Lipid 1996 panel - Serum or Plasm a cholesterol non HDL [mass/volume ] in serum or plasma 194 text: <130 mg/dL high NON HDL RADHA STERO L 194 (H) <130 MG/DL 11/11 1:40 PM MANAGER [employer]EMENT [facility] Not Available Not Available 12/09/2024 09:59:21 11/11/19 25 11/11/2024 Lipid 1996 panel - Serum or Plasm a cholesterol. total/choles terol in HDL [mass ratio] in serum or plasma 6.4 low: 0high: 4.5 high CHOL/ HDL RATIO 6.4 (H) 0.0 - 4.5 11/11 1:40 PM MANAGER [employer]OVEMENT [facility] Not Available Not Available 12/09/2024 09:59:21 11/11/19 25 11/11/2024 Lipid 1996 panel - Serum or Plasm a cholesterol in VLDL [mass/volume ] in serum or plasma by calculation 18 text: 5 - 55 mg/dL VLDL CALCU LATIO N 18 5 - 55 MG/DL 11/11 1:40 PM MANAGER QUALITY IMPROVEMENT [facility] Not Available Not Available 12/09/2024 09:59:21 11/11/19 25 11/11/2024 Lipid 1996 panel - Serum or Plasm a service comment LIPID INTER PRETA TION 11/11 1:40 PM MANAGER QUALITY IM[employer]OVEMENT [facility] Not Available Not Available 12/09/2024 09:59:21 11/11/19 25 11/11/2024 Lipid 1996 panel - Serum or Plasm a interpretati on and review of laboratory results ABNORM AL Not Available Not Available 09:59:21 12/09/19 25 12/10/2024 CBC WITH DIFFE RENTI AL/PL ATELE T WBC 21.1 x10e3 /uL 3.4-10 .8 alert high Not Available [facility] ([facility]) [address] [facility], [place], [address], 12/10/2024 05:09:57 12/09/19 25 12/10/2024 CBC WITH DIFFE RENTI AL/PL ATELE T RBC 5.44 x10e6 /uL 4.14-5 .80 Not Available [facility] ([facility]) [address] [facility], [place], [address], 12/10/2024 05:09:57 12/09/19 25 12/10/2024 CBC WITH DIFFE RENTI AL/PL ATELE T hemoglobin 17.7 g/dL 13.0-1 7.7 Not Available [facility] ([facility]) [address] [facility], [place], [address], 12/10/2024 05:09:57 12/09/19 25 12/10/2024 CBC WITH DIFFE RENTI AL/PL ATELE T hematocrit 50.9 % 37.5-5 1.0 Not Available [facility] ([facility]) [address] [place], [address], 12/10/2024 05:09:57 12/09/19 25 12/10/2024 CBC WITH DIFFE RENTI AL/PL ATELE T MCV 94 fL 79-97 Not Available [facility] ([facility]) [address] [place], [address], 12/10/2024 05:09:57 12/09/19 25 12/10/2024 CBC WITH DIFFE RENTI AL/PL ATELE T MCH 32.5 pg 26.6-3 3.0 Not Available [facility] ([facility]) [address] [place], [address], 12/10/2024 05:09:57 12/09/19 25 12/10/2024 CBC WITH DIFFE RENTI AL/PL ATELE T MCHC 34.8 g/dL 31.5-3 5.7 Not Available [facility] ([facility]) [address] [facility], [place], [address], 12/10/2024 05:09:57 12/09/19 25 12/10/2024 CBC WITH DIFFE RENTI AL/PL ATELE T RDW 12.7 % 11.6-1 5.4 Not Available [facility] ([facility]) [address] [facility], [place], [address], 12/10/2024 05:09:57 12/09/19 25 12/10/2024 CBC WITH DIFFE RENTI AL/PL ATELE T platelets 345 x10e3 /uL 150-45 0 Not Available [facility] ([facility]) [address] [facility], [place], [address], 12/10/2024 05:09:57 12/09/19 25 12/10/2024 CBC WITH DIFFE RENTI AL/PL ATELE T neutrophils 72 % notest ab. Not Available [facility] ([facility]) [address] [facility], [place], [address], 12/10/2024 05:09:57 12/09/19 25 12/10/2024 CBC WITH DIFFE RENTI AL/PL ATELE T lymphs 19 % notest ab. Not Available [facility] ([facility]) [address] [facility], [place], [address], 12/10/2024 05:09:57 12/09/19 25 12/10/2024 CBC WITH DIFFE RENTI AL/PL ATELE T monocytes 7 % notest ab. Not Available [facility] ([facility]) [address] [facility], [place], [address], 12/10/2024 05:09:57 12/09/19 25 12/10/2024 CBC WITH DIFFE RENTI AL/PL ATELE T eos 1 % notest ab. Not Available [facility] ([facility]) [address] [facility], [place], [address], 12/10/2024 05:09:57 12/09/19 25 12/10/2024 CBC WITH DIFFE RENTI AL/PL ATELE T basos 0 % notest ab. Not Available [facility] ([facility]) [address] [place], [address], 12/10/2024 05:09:57 12/09/19 25 12/10/2024 CBC WITH DIFFE RENTI AL/PL ATELE T neutrophils (absolute) 15.3 x10e3 /uL 1.4-7. 0 above high normal Not Available [facility] ([facility]) [address] [place], [address], 12/10/2024 05:09:57 12/09/19 25 12/10/2024 CBC WITH DIFFE RENTI AL/PL ATELE T lymphs (absolute) 3.9 x10e3 /uL 0.7-3. 1 above high normal Not Available [facility] ([facility]) [address] [place], [address], 12/10/2024 05:09:57 12/09/19 25 12/10/2024 CBC WITH DIFFE RENTI AL/PL ATELE T monocytes(ab solute) 1.5 x10e3 /uL 0.1-0. 9 above high normal Not Available [facility] ([facility]) [address] [place], [address], 12/10/2024 05:09:57 12/09/19 25 12/10/2024 CBC WITH DIFFE RENTI AL/PL ATELE T eos (absolute) 0.1 x10e3 /uL 0.0-0. 4 Not Available [facility] ([facility]) [address] [place], [address], 12/10/2024 05:09:57 12/09/19 25 12/10/2024 CBC WITH DIFFE RENTI AL/PL ATELE T baso (absolute) 0.1 x10e3 /uL 0.0-0. 2 Not Available [facility] ([facility]) [address] [facility], [place], [address], 12/10/2024 05:09:57 12/09/19 25 12/10/2024 CBC WITH DIFFE RENTI AL/PL ATELE T immature granulocytes 1 % notest ab. Not Available [facility] ([facility]) [address] [facility], [place], [address], 12/10/2024 05:09:57 12/09/19 25 12/10/2024 CBC WITH DIFFE RENTI AL/PL ATELE T immature grans (abs) 0.1 x10e3 /uL 0.0-0. 1 Not Available [facility] ([facility]) [address] [facility], [place], [address], 12/10/2024 05:09:57 Result Notes None recorded. Problems Name Problem SNOMED Code Status Onset Date Resolution Date Notes Provider Name and Address Organization Details Recorded Time Mixed anxiety and depressive disorder 702048497 Active 2024 JESS HORTON NP Attn: Brody ren,[address] [facility], [place], [address], [place] [facility] 5 14:09:16 Essential hypertension 95087488 Active 2024 JESS HORTON NP Attn: Brody ren,[address] [facility], [place], [address], [place] [facility] 5 14:09:20 Smoker 61026653 Active 2024 JESS HORTON NP Attn: Shadiin g,[address] [facility], [place], [address], [place] [facility] 5 14:09:22 Hyperlipidemia 14403362 Active 2024 JESS HORTON NP Attn: Brody g,[address] [facility], [place], [address] [facility] 5 14:15:25 Left ventricular hypertrophy 86200373 Active 2024 JESS NATAN HORTON Attn: Brody ren,[address] [facility], [place], [address], [place] [facility] 5 14:19:28 Gastroesophage al reflux disease 989361238 Active 2024 JESS KEENANNATAN DELUCA Attn: Brody ren,[address] [facility], [place], [address], [place] [facility] 5 14:19:32 Obesity 543853862 Active 2024 JESS NATAN HORTON Attn: Brody g,[address] [facility], [place], [place], [address], [place] [facility] 5 14:19:34 Hidradenitis suppurativa 48816264 Active 2024 JESSHILDA HORTON NP Attn: Brody ren,[address] [facility], [place], [address], [place] [facility] 14:19:43 Problem Notes None recorded. Medical Equipment None Reported. Allergies Allergen ID Allergen Name Allergen Category Reaction Reaction Severity Criticality Documentation Date Start Date Code Code System Note Provider Name and Address Organization Details Recorded Time 112412 ALLERGENI C EXTRACT, RAGWE[facility] STOCK POLLEN medicatio n other Not available Not available 12/09/20242024 17359 4 RxNorm Confi rmed with blood work Not Available Not Available Not Available Medications Name Sig Start Date Stop Date Status Note LastModified by Organization Details LastModified Time losartan 50 mg tablet TAKE 1 TABLET BY MOUTH ONCE DAILY active Not Available Not Available No t Available amoxicillin 500 mg capsule TAKE 2 CAPSULES BY MOUTH TWICE DAILY FOR 14 DAYS 12/09 completed Not Available Not Available Not Available atorvastati n 40 mg tablet TAKE 1 TABLET BY MOUTH AT DINNER active Not Available Not Available No t Available doxycycline hyclate 100 mg capsule TAKE 1 CAPSULE BY MOUTH TWICE DAILY FOR 10 DAYS 12/09 completed Not Available Not Available Not Available atorvastati n 20 mg tablet TAKE 1 TABLET BY MOUTH NIGHTLY AT BEDTIME 12/09 completed Not Available Not Available Not Available cetirizine 10 mg tablet TAKE 1 TABLET BY MOUTH ONCE DAILY 12/09 completed Not Available Not Available Not Available cefpodoxime 200 mg tablet TAKE 1 TABLET BY MOUTH TWICE DAILY FOR 10 DAYS 12/09 completed Not Available Not Available Not Available azithromyci n 250 mg tablet TAKE 4 TABLETS BY MOUTH ONCE 12/09 completed Not Available Not Available Not Available fluconazole 150 mg tablet TAKE ONE TABLET BY MOUTH A ONE-TIME DOSE 12/09 completed Not Available Not Available Not Available famotidine 40 mg tablet TAKE 1/2 (ONE-HALF ) TABLET BY MOUTH TWICE DAILY WITH MEALS active Not Available Not Available No t Available prednisone 20 mg tablet TAKE 2 TABLETS BY MOUTH IN THE MORNING FOR 5 DAYS 12/09 completed Not Available Not Available Not Available sulfamethox azole 800 mg-trimetho prim 160 mg tablet TAKE 1 TABLET BY MOUTH TWICE DAILY FOR 7 DAYS 12/09 completed Not Available Not Available Not Available omeprazole 40 mg capsule,del ayed release TAKE 1 CAPSULE BY MOUTH ONCE DAILY active Not Available Not Available No t Available dexamethaso ne 2 mg tablet TAKE 3 TABLETS BY MOUTH ONCE FOR 1 DOSE 12/09 completed Not Available Not Available Not Available losartan 25 mg tablet TAKE 1 TABLET BY MOUTH ONCE DAILY IN THE MORNING 12/09 completed Not Available Not Available Not Available ibuprofen 600 mg tablet TAKE 1 TABLET BY MOUTH EVERY 6 HOURS NEEDED FOR PAIN 12/09 completed Not Available Not Available Not Available methylpredn isolone 4 mg tablets in a dose pack TAKE BY MOUTH DIRECTED ON INSIDE OF PACKAGE 12/09 completed Not Available Not Available Not Available ondansetron 4 mg disintegrat ing tablet DISSOLVE 1 TABLET IN MOUTH EVERY 8 HOURS NEEDED FOR NAUSEA 12/09 completed Not Available Not Available Not Available fluticasone propionate 50 mcg/actuati on nasal spray,suspe nsion USE 2 SPRAY(S) IN EACH NOSTRIL ONCE DAILY 12/09 completed Not Available Not Available Not Available amoxicillin 875 mg-potassiu m clavulanate 125 mg tablet TAKE 1 TABLET BY MOUTH TWICE DAILY FOR 10 DAYS active Not Available Not Available No t Available Vitals Date Recorded Body height Body mass index (BMI) Body weight Heart rate Body temperature Systolic blood pressure Diastolic blood pressure Provider Name and Address Organization Details Last Updated DateTime 4 177.8 cm 39.2 kg/m2 567707. 15 g 188 /min 98.4 [degF] 122 mm[Hg] 80 mm[Hg] Kristin Buck MA [facility] 4 12:24:48 Date Recorded Body height Body weight Body mass index (BMI) Respiratory rate Body temperature Heart rate Systolic blood pressure Diastolic blood pressure Provider Name and Address Organization Details Last Updated DateTime 4 177.8 cm 064167. 67 g 39.3 kg/m2 16 /min 99.5 [degF] 94 /min 136 mm[Hg] 86 mm[Hg] Rhina Paniagua MA [facility] 4 11:39:16 Date Recorded Body height Body mass index (BMI) Body weight Oxygen saturation Oxygen saturation in Arterial blood by Pulse oximetry Heart rate Respiratory rate Body temperature Systolic blood pressure Diastolic blood pressure Provider Name and Address Organization Details Last Updated DateTime 5 177.8 cm 37.8 kg/m2 534996. 54 g 95 % 95 % 87 /min 16 /min 97.9 [degF] 112 mm[Hg] 71 mm[Hg] Mariaelena Patel LPN [facility] 5 10:02:36 Social History Question Answer Notes LastModified by Organization Details LastModified Time Tobacco Smoking Status Current Every Day Smoker Kristin Buck MA null, [facility] 01/13/2024 12:26:05 Do You Have An Advance Directive? No Information not available 12/09/2024 What Is Your Level Of Alcohol Consumption? Occasional Information not available 01/13/2024 Are You Blind Or Do You Have Difficulty Seeing? No Information not available 01/13/2024 What Is Your Level Of Caffeine Consumption? Heavy Coffee Information not available 01/13/2024 In The 14 Days Before Symptom Onset, Have You Had Close Contact With A Laboratory-con firmed COVID-19 While That Case Was Ill? No Information not available 01/13/2024 In The 14 Days Before Symptom Onset, Have You Had Close Contact With A Person Who Is Under Investigation For COVID-19 While That Person Was Ill? No Information not available 01/13/2024 Have You Been To An Area Known To Be High Risk For COVID-19? No Information not available 01/13/2024 Are You Currently Employed? No Information not available 01/13/2024 Are You Deaf Or Do You Have Serious Difficulty Hearing? No Information not available 01/13/2024 What Type Of Diet Are You Following? CARBOHYDRATE Information not available 12/09/2024 What Is The Highest Grade Or Level Of School You Have Completed Or The Highest Degree You Have Received? [id number] Information not available 01/13/2024 Are There Any Guns Present In Your Home? No Information not available 12/09/2024 What Was The Date Of Your Most Recent Tobacco Screening? 12/09/2024 Information not available 12/09/2024 How Many Children Do You Have? 0 Information not available 12/09/2024 What Is Your Current Pack Years? [email or web address] Information not available 12/09/2024 Do You Have Any Pets? Yes 3 Cats Information not available 01/13/2024 Do You Use Protection During Sex? No Information not available 12/09/2024 What Is Your Relationship Status? Domestic Partner Information not available 01/13/2024 Do You Use Your Seat Belt Or Car Seat Routinely? Yes Information not available 12/09/2024 Are You Sexually Active? Yes Information not available 12/09/2024 Do You Have Smoke And Carbon Monoxide Detectors In Your Home? Yes Information not available 12/09/2024 At What Age Did You Start Smoking Tobacco? 16 Information not available 01/13/2024 Are You Passively Exposed To Smoke? Yes Information not available 12/09/2024 How Much Tobacco Do You Smoke? 0.5 PPD Information not available 01/13/2024 Do You Feel Stressed (tense, Restless, Nervous, Or Anxious, Or Unable To Sleep At Night)? [id number] Information not available 01/13/2024 Do You Use Any Illicit Or Recreational Drugs? No Information not available 01/13/2024 Do You Use Sunscreen Routinely? No Information not available 01/13/2024 Has Tobacco Cessation Counseling Been Provided? Yes Information not available 01/13/2024 On What Date Was Tobacco Cessation Counseling Provided? 01/27/2024 [email or web address] Information not available 01/27/2024 How Many Years Have You Smoked Tobacco? 18 Information not available 12/09/2024 What Type Of Noise Exposure Are You Exposed To? NoExposureToExcessiveNois e Information not available 01/13/2024 Do You Or Have You Ever Used Any Other Forms Of Tobacco Or Nicotine? No Information not available 01/13/2024 Sex: Male Functional Status Question Answer Note LastModified by Organizat ion Details LastModified Time Are you able to care for yourself? Yes Information not available 12/09/2024 What is your exercise level? Occasional Information not available 01/13/2024 Mental Status None recorded. Family History Relationship Description Onset Age of this Age Resolved Age Notes LastModified by Organization Details LastModified Time Father No current problems or disability Not available 01/12 12:25:15 Mother No current problems or disability Not available 01/12 12:25:15 Medical History Condition Response Anxiety Disorder Y Skin Problems Y High Blood Pressure Y High Cholesterol Y Acid Reflux (GERD) Y Depression Y Allergies Y Immunizations Vaccine Type Date Status Note Provider Nam e and Address Organization Details Recorded Time Hib, unspecified formulation 3 completed JESS HORTON NP Attn: [address]ing,[address] [place], [address], [place] [facility] 12/09/2024 10:18:02 Hib, unspecified formulation 5 completed JESS HORTON NP Attn: Accounting,[address] [facility], [place], [address], [place] [facility] 12/09/2024 10:18:02 Hib, unspecified formulation 1 completed JESS CLIFFORD, CORPORATE DIRECTOR TALENT ASSESSMENT Attn: Accounting,[address], [place], [address], [place] [facility] 12/09/2024 10:18:02 Hib, unspecified formulation 1 completed JESS CLIFFORD, CORPORATE DIRECTOR TALENT ASSESSMENT Attn: Accounting,[address], [place], [address], [place] [facility] 12/09/2024 10:18:02 MMR 5 completed JESS CLIFFORD, CORPORATE DIRECTOR TALENT ASSESSMENT Attn: Accounting,[address], [place], [address], [place] [facility] 12/09/2024 10:18:02 MMR 1 completed JESS HORTON, CORPORATE DIRECTOR TALENT ASSESSMENT Attn: Accounting,[address], [place], [address], [place] [facility] 12/09/2024 10:18:02 Tdap 2 completed JESS HORTON, CORPORATE DIRECTOR [employer]ALENT ASSESSMENT Attn: Accounting,[address], [place], [address], [place] [facility] 12/09/2024 10:18:02 DTP 3 completed JESS HORTON, CORPORATE DIRECTOR TALENT ASSESSMENT Attn: Accounting,[address], [place], [address], [place] [facility] 12/09/2024 10:18:02 DTP 2 completed JESS HORTON, CORPORATE DIRECTOR TALENT ASSESSMENT Attn: Accounting,[address], [place], [address], [place] [facility] 12/09/2024 10:18:02 DTP 5 completed JESS HORTON, CORPORATE DIRECTOR TALENT ASSESSMENT Attn: Accounting,[address], [place], [address], [place] [facility] 12/09/2024 10:18:02 DTP 1 completed JESS HORTON, CORPORATE DIRECTOR TALENT ASSESSMENT Attn: Accounting,[address], [place], [address], [place] [facility] 12/09/2024 10:18:02 DTP 1 completed JESS CLIFFORD, CORPORATE DIRECTOR TALENT ASSESSMENT Attn: Accounting,[address] [facility], [place], [address], [place] [facility] 12/09/2024 10:18:02 OPV 3 completed JESS CLIFFORD, CORPORATE DIRECTOR TALENT ASSESSMENT Attn: Accounting,[address] [facility], [place], [address], [facility] - [facility] 12/09/2024 10:18:02 OPV 2 completed JESS CLIFFORD, CORPORATE DIRECTOR TALENT ASSESSMENT Attn: Accounting,[address] [facility], [place], [address], [facility] - [facility] 12/09/2024 10:18:02 OPV 5 completed JESS CLIFFORD, CORPORATE DIRECTOR TALENT ASSESSMENT Attn: Accounting,[address] [facility], [place], [address], [place] [facility] 12/09/2024 10:18:02 OPV 1 completed JESS HORTON, CORPORATE DIRECTOR TALENT ASSESSMENT Attn: Accounting,[address] [facility], [place], [address], [place] [facility] 12/09/2024 10:18:02 OPV 1 completed JESS HORTON, CORPORATE DIRECTOR TALENT ASSESSMENT Attn: Accounting,[address] [facility], [place], [address], [place] [facility] 12/09/2024 10:18:02 Td (adult), 2 Lf tetanus toxoid, preservative free, adsorbed 4 completed JESS CLIFFORD, CORPORATE DIRECTOR TALENT ASSESSMENT Attn: Accounting,[address] [facility], [place], [address], [place] [facility] 12/09/2024 10:18:02 Hep B, adolescent or pediatric 0 completed JESS HORTON, CORPORATE DIRECTOR TALENT ASSESSMENT Attn: Accounting,[address] [facility], [place], [address], [place] [facility] 12/09/2024 10:18:02 Hep B, adolescent or pediatric 0 completed JESS CLIFFORD, CORPORATE DIRECTOR TALENT ASSESSMENT Attn: Accounting,[address] [facility], [place], [address], [facility] - [facility] 12/09/2024 10:18:02 Hep B, adolescent or pediatric 9 completed JESS HORTON NP Attn: Accounting,[address] [facility], [place], [address], [facility] - [facility] 12/09/2024 10:18:02 Hep A, adult 1 completed JESS HORTON NP Attn: Accounting,[address] [facility], [place], [address], [facility] - [facility] 12/09/2024 10:18:02 Influenza, split virus, quadrivalent, PF 8 completed JESS HORTON NP Attn: Accounting,[address] [facility], [place], [address], [facility] - [facility] 12/09/2024 10:18:02 Past Encounters Encounter ID Performer Location Encounter Start Date Encounter Closed Date Diagnosis/Indication Diagnosis SNOMED-CT Code Diagnosis ICD10 Code Diagnosis Note [id number] MD Adrien Walker (Adult Med) [address] [place] [address] 01/13/2024 11:54:29 01/13/2024 19:55:58 Acute tonsillitis 91746414 J03.90 follow up in two weeks [id number] MD Adrien Walker (Adult Med) [address] [place] [address] 01/27/2024 11:28:14 02/05/2024 21:10:30 Mass of palatine tonsil 944448926 D10.[address] [id number] JESS HORTON NP [facility] [address] [place] [address] 12/09/2024 09:46:35 12/09/2024 11:45:48 Adult health examination 245202541 Z00.00 - Discussed with patient findings, diagnoses, and prognosis. - Discussed plan of care including treatment options, risks, and benefits with patients. Patient expressed understand ing.- The following interventi ons were recommende d: heart healthy low-fat, low-sodium diet, ideal body weight, regular exercise, medication s compliance , and medical follow-up as noted. Obesity 200173739 E66.9 advised low fat, low cholestero l, low carb diet, regular exercise and weight reduction. Gastroesop hageal reflux disease 059419679 K21.9 - Continue omeprazole in AM and famotidine a night - discussed the follow non pharmacolo gical ways the patient can help manage her reflux: -Avoid lying flat 3 to 4 hours after eating or drinking. - Avoid tight clothing around the waist. - Decrease dietary fat intake. - Avoid acidic foods (citrus and tomato-bas ed products), alcohol, caffeinate d beverages, chocolate, onions, garlic, salt, and peppermint oil. - Avoid large meals. - Avoid drinking coffee, or carbonated beverages. - Weight loss can help with symptoms, try to diet and exercise.- Stop smoking. Left ventr icular hypertrophy 09042738 I51.7 Smoker 60386271 F17.200 - Patient is a current cigarette smoker, states he smokes 1/2pk per day and currently has no desire to quit.- Patient advised in the derogatory effects of smoking- Counseling for smoking cessation completed Essential hypertension 20310481 I10 - b/p in office today 112/71- Continue Losartan as prescribed and diet/exerc ise as previously discussed. - Take occasional BP s , call if consistent ly >140/90.- Discussed reasons for sooner f/u than 1 months- Patient verbalizes understand ing. Mixed anxi ety and depressive disorder 482204122 F41.8 - PHQ-9 score: 0, patient is not on medication s. No active depressive symptoms reported. No interventi on needed at this time; monitor for future concerns.- All questions and concerns were addressed. - Pt is to monitor symptoms and RTC sooner if symptoms are worsening or not improving. Hidradenit is suppurativa 91934937 L73.2 Chronic Boils in [facility] active boils at this time.Mane nue preventati ve skincare regimen (gentle cleansing, antibacter ial washes, loose clothing) Health Concerns Section Related Observation LastModified by Organization Detai ls LastModified Time None Recorded Concern Status LastModified by Organization Details LastModified Time None Recorded Advance Directives Directive N: Payers Encounter Date Sequence Insurance Name Policy Number Policy Ricardo Covered Member ID Ricardo Member ID Guarantor Name 01/27/2024 2 *SELF PAY* Lory Apodaca 12/09/2024 2 *SELF PAY* Lory Apodaca 12/09/2024 1 [facility] (MEDICAID HMO) [id number] Shaq Apodaca [id number] Shaq Apodaca Notes Date Note Type Note Provider Name and Address Organization Details Recorded Time 01/13/2024 text/html Pt complaining o f discomfort in the right side of his throat. He see a lump in his throat. He is a smoker Reynaldo Carlos MD Attn: [address] [place], [address], [facility] 01/13/2024 12:34:45 01/27/2024 text/html Pt complaining o f swelling of the left side of his throat. He has an enlarged left tonsil that did not improve with antibiotics Reynaldo Carlos MD Attn: Accounting[address] [place], [address], [facility] 01/27/2024 11:52:28 12/09/2024 text/html Hypertension F/UReported bypatient.Associate d Symptoms:no dizziness; no lightheadedness; no chest pain; no shortness of breath; no edema;palpitations Medications:taking medications as directed Mr. Apodaca is a 34-year-old male presenting for establishment of care. He moved to the area one year ago. Past medical history includes chronic sinusitis, hypertension, hidradenitis suppurativa with recurrent boils in the groin, scrotal eczema, left ventricular hypertrophy (not evaluated by cardiology yet), anxiety, and depression. Patient had an EKG about a month ago but has not followed up with cardiology. He was treated for E. coli infection in June 2024. Currently, the patient is experiencing throat issues and is being evaluated by Dr. Mistry, who suspects acid reflux or GERD (symptoms began one year ago). The patient reports a mass on the left side of his throat and states he had his tonsils removed at 4-5 years old, but they grew back. He would like to see a new ENT specialist and has had CT scans done at [facility]. Additionally, he has a scheduled sleep apnea test on 12/13/[address] Hernandez. JESS HORTON NP Attn: [address]ing[address] [place], [address], [facility] 12/18/2024 14:21:17
--- OUTSIDE RECORDS SUMMARY | 2024-12-22 12:07 | XMS_ITS | Encounter Summary ---
Author Organization [facility] Address [facility] [place] [address] Care Team Providers Care Facilities Maintenance Worker Name Role Phone Loni Singh NP Primary Care Provider Supriya Headley MD Primary Care Provider Encounter Details Date Type Department Care Team (Late st Contact Info) Description 09/12/2024 [employer] Message Enc [facility] Medical [facility] Family & Internal Medicine [address] [address] Loni Singh NP [address] [place] [address] G.I. referral Social History Tobacco Use Types Packs/Day Years Used Date Smoking Tobacco: Every Day Cigarettes 0.5 15 Smokeless Tobacco: Never Comments:Trying to quit Alcohol Use Standard Drinks/Week Comments Yes 0 (1 standard drink = 0.6 oz pur e alcohol) rarely PHQ-2 Answer Date Recorded Patient Health Questionnaire-2 Score 0 02/06/2024 Sex and Gender Information Value Date Recorded Sex Assigned at Male 11/03/2024 2:46 PM [employer] Legal Sex Male 1:52 PM CDT Gender Identity Male 11/11/2024 8:25 AM [employer] Sexual Orientation Lesbian or Jeffrey 11/11/2024 8: 25 AM [employer] documented as of this encounter Plan of Treatment Upcoming Encounters Date Type Department Care Team (Late st Contact Info) Description 02/10/2025 1:40 PM CDT Office Visit [facility] Medical Group Family & Internal Medicine - [place] [address] [place] [phone] [place] [address] [facility] [address] [place] [address] documented as of this encounter Visit Diagnoses Not on filedocumented in this encounter Care Teams Facilities Maintenance Worker Relationship Specialty Start Date End Date Loni Singh, ANALY[employer] [address] [facility] [address]. [place] [address] PCP - General Nurse Practitioner Family 06/09/2410/20 [place] [address] [place] [address] PCP - General INTERNAL MEDICINE 11/03/24 documented as of this encounter
--- OUTSIDE RECORDS SUMMARY | 2024-12-22 12:07 | XMS_ITS | Referral Summary ---
Author Organization [facility] at the [facility] Address [address] [place], [place] [address] Care Team Providers Care Steam Room Attendant Name Role Phone Loni Singh Jose Alejandro GAMA Primary Care Provide r Encounters Date Type Department Care Team Description 12/13/2024 11:45 AM LEGAL ASSISTANT Office Visit [facility] Sleep Medicine at [address] [place] [address] Lucero Mercado MD Obstructive sleep apnea (Primary Dx); HALI (obstructive sleep apnea); Hypersomnia; Obesity, unspecified class, unspecified obesity type, unspecified whether serious comorbidity present; Insomnia, unspecified type 11/30/2024 2:00 PM LEGAL ASSISTANT Office Visit [facility] [address], [place] [phone] Blanka Burch DO Chronic pharyngitis (Primary Dx); Laryngopharyngeal reflux (LPR) 11/04/2024 Orders Only [facility] [address], [place] [phone] Blanka Burch DO HALI (obstructive sleep apnea) (Primary Dx) 11/02/2024 Telephone [facility] [address], [place] [address] Sol Zheng MA 10/08/2024 Telephone [facility]ists [address] [place] [phone] Sol Zheng MA from Last 3 Months Allergies No known active allergies Medications losartan (COZAAR) 25 mg tablet Take 1 tablet (25 mg total) by mouth daily Active omeprazole (PriLOSEC) 40 mg capsule Take 1 capsule (40 mg total) by mouth daily Active famotidine (PEPCID) 40 mg tabletIndicatio ns:Laryngophary ngeal reflux (LPR) Take 1 tablet (40 mg total) by mouth nightly 90 tablet 3 4 08/15/20 25 Active atorvastatin (LIPITOR) 40 mg tablet Take 1 tablet (40 mg total) by mouth daily Active amoxicillin-cla vulanate (Augmentin) 875-125 mg per tabletIndicatio ns:Chronic pharyngitis Take 1 tablet (875 mg of amoxicillin total) by mouth 2 (two) times a day for 10 days 20 tablet 5 12/10/19 25 Active Problems Problem Noted Date Diagnosed Date Chronic pharyngitis 11/30/2024 Assessment & Plan (11/30/2024 2:14 PM LEGAL ASSISTANT): Augmentin twice daily for 10 days with a meal Continue omeprazole and Pepcid Laryngopharyngeal reflux (LPR) 08/20/2024 Assessment & Plan (11/30/2024 2:14 PM LEGAL ASSISTANT): Augmentin twice daily for 10 days with a meal Continue omeprazole and Pepcid Assessment & Plan (08/20/2024 3:30 PM CDT): Blood allergy testing Take Omeprazole (Prilosec) 40 mg 30-60 minutes prior to any other medication, food or fluids other than water Start Pepcid 40 mg at bedtime Call if witnessed apnea for referral to sleep medicine Call if no improvement with Pepcid Non-seasonal allergic rhinitis due to pollen 10/2023 Assessment & Plan (08/20/2024 3:30 PM CDT): Blood allergy testing Chronic congestion of paranasal sinus 08/20/2024 Assessment & Plan (08/20/2024 3:30 PM CDT): Blood allergy testing Take Omeprazole (Prilosec) 40 mg 30-60 minutes prior to any other medication, food or fluids other than water Start Pepcid 40 mg at bedtime Call if witnessed apnea for referral to sleep medicine Call if no improvement with Pepcid Social History Tobacco Use Types Packs/Day Years Used Date Smoking Tobacco: Every Day Cigarettes Sex and Gender Information Value Date Recorded Sex Assigned at Not on file Legal Sex Male 9:31 AM CDT Gender Identity Not on file Sexual Orientation Not on file Last Filed Vital Signs Vital Sign Reading Time Taken Comments Blood Pressure 109/69 12/13/2024 11:32 AM LEGAL ASSISTANT Pulse 71 12/13/2024 11:32 AM LEGAL ASSISTANT Temperature - - Respiratory Rate 18 08/20/2024 10:4 9 AM CDT Oxygen Saturation 97% 12/13/2024 11: 32 AM LEGAL ASSISTANT Inhaled Oxygen Concentration - - Weight 119.9 kg (264 lb 6.4 oz) 025 11:32 AM LEGAL ASSISTANT Height 180.3 cm (5' 10.98 ) 12/13/2024 11:32 AM LEGAL ASSISTANT Body Mass Index 36.89 12/13/2024 11:32 AM LEGAL ASSISTANT Plan of Treatment Not on file Insurance [facility] Care Teams Steam Room Attendant Relationship Specialty [place] [address] [address] PCP - General Nurse Practitioner 07/01/24
--- OUTSIDE RECORDS SUMMARY | 2024-12-22 12:07 | XMS_ITS | Clinical Summary ---
Author Organization [facility] Address [address] [place] [address] Care Team Providers Care Vamp Liner Name Role Phone Loni Singh Jose Alejandro [employer]ORER [employer] Primary Care Provide r Allergies No known active allergies Medications losartan [...] 11/30/2024 Assessment & Plan (11/30/2024 2:14 PM ATTENDANT [place]): Augmentin twice daily for 10 days with a meal Continue omeprazole and Pepcid Laryngopharyngeal reflux (LPR) 08/20/2024 Assessment & Plan (11/30/2024 2:14 PM ATTENDANT [place]): Augmentin twice daily for 10 days with [...] medicine Call if no improvement with Pepcid Encounters Date Type Department Care Team Description 12/13/2024 11:45 AM ATTENDANT [place] Office Visit [facility] Sleep Medicine at [address] [place] [phone] Lucero Mercado MD Obstructive sleep apnea (Primary Dx); HALI (obstructive sleep apnea); Hypersomnia; Obesity, unspecified class, unspecified obesity type, unspecified whether serious comorbidity present; Insomnia, unspecified type 11/30/2024 2:00 PM ATTENDANT [place] Office Visit [facility] ENT Specialists - [address] [place] [phone] Blanka Burch, Chronic pharyngitis (Primary Dx); Laryngopharyngeal reflux (LPR) 11/04/2024 Orders Only [facility] [address] [place] [phone] Blanka Burch DO HALI (obstructive sleep apnea) (Primary Dx) 11/02/2024 Telephone [facility] ENT Specialists [address] [place] [phone] Sol Zheng MA 10/08/2024 Telephone [facility] E[facility]ists - [facility] [address] [facility] [address] [place] [address] Sol Zheng MA from Last 3 Months Social History Tobacco Use Types Packs/Day Years Used Date Smoking Tobacco: Every Day Cigarettes Sex and Gender Information Value Date Recorded Sex Assigned at Not on file Legal Sex Male 9:31 AM CDT Gender Identity Not on file Sexual Orientation Not on file Obstetrics History Last Filed Vital Signs Vital Sign Reading Time Taken Comments Blood Pressure 109/69 12/13/2024 11:32 AM ATTENDANT [place] Pulse 71 12/13/2024 11:32 AM ATTENDANT [place] Temperature - - Respiratory Rate 18 08/20/2024 10:4 9 AM CDT Oxygen Saturation 97% 12/13/2024 11: 32 AM ATTENDANT [place] Inhaled Oxygen Concentration - - Weight 119.9 kg (264 lb 6.4 oz) 025 11:32 AM ATTENDANT [place] Height 180.3 cm (5' 10.98 ) 12/13/2024 11:32 AM ATTENDANT [place] Body Mass Index 36.89 12/13/2024 11:32 AM ATTENDANT [place] Plan of Treatment Health Maintenance Due Date Last Done Comments Depression Screening 1990 Hepatitis C Screening 1990 Varicella Vaccines (1 of 2 - 13+ 2-dose series) 2003 Regular Well Visit/Exam 18-64 2008 Pneumococcal vaccine <65 (1 of 2 - PCV) 2009 Influenza Vaccine (#1) 2024 09/30/2018 DTaP/Tdap/Td Vaccine (7 - Td or Tdap) 01/10/2032 01/09/2022, 06/06/2004, 06/20/1995, Additional history exists Hepatitis B Screening Completed 05/21/2000 , 12/18/1999, 08/23/1999 HPV Vaccines Aged Out No longer eligi ble based on patient's age to complete this topic Insurance [facility] Care Teams Vamp Liner Relationship Specialty [place] [address] [place] [address] PCP - General Nurse Practitioner 07/01/24
--- OUTSIDE RECORDS SUMMARY | 2024-12-22 12:07 | XMS_ITS | Encounter Summary ---
Author Organization [facility] Address [facility] [place] [address] Care Team Providers Care Cardiac Rehabilitation Program Director Name Role Phone Loni Singh NP Primary Care Provider [phone] Supriya Headley MD Primary Care Provider Encounter Details Date Type Department Care Team (Late st Contact Info) Description 10/27/2024 Rhapso Message Enc [facility] Medical Group Family & Internal Medicine [facility] [address] [place] [phone] Loni Singh [place] [id number] [place] [address] Medications Social History Tobacco Use Types Packs/Day Years Used Date Smoking Tobacco: Every Day Cigarettes 0.5 15 Smokeless Tobacco: Never Comments:Trying to quit Alcohol Use Standard Drinks/Week Comments Yes 0 (1 standard drink = 0.6 oz pur e alcohol) rarely PHQ-2 Answer Date Recorded Patient Health Questionnaire-2 Score 0 02/06/2024 Sex and Gender Information Value Date Recorded Sex Assigned at Male 11/03/2024 2:46 PM COMPLIANCE REVIEW OFFICER Legal Sex Male 1:52 PM CDT Gender Identity Male 11/11/2024 8:25 AM COMPLIANCE REVIEW OFFICER Sexual Orientation Lesbian or Jeffrey 11/11/2024 8: 25 AM COMPLIANCE REVIEW OFFICER documented as of this encounter Progress Notes * Loni Singh NP - 10/29/2024 10:12 AM CST If he has a concern about his heart and the shortness of breath then a work-up in the ER may be appropriate. We can add orders for out-patient stress test, echo, and 24 hour holter monitoring to assess further as well if he feels stable. This could be spasm from the esophagus, anxiety, or respiratory infections? Its hard to know without more of an assessment and data LIANCE REVIEW OFFICER * Nova Gannon MA - 10/28/2024 4:13 PM CST Please advise LIANCE REVIEW OFFICER * Loni Singh NP - 10/28/2024 8:27 AM CST I had recommended a trial for PPI and H2B on for at least 3 months. Since 2 different ENT have evaluated and deemed some of his complaints to be caused by reflux and not a tonsil ear nose or throat problem I think it would be a good idea to continue the regimen. I will add refill orders to the pharmacy. Does he have a pulse ox or a way to change his heart in the morning when he feels this way. It would be important to understand if his heart rate is elevating greater than 100 or if it is normal but if he is feeling a sensation of palpitations. LIANCE REVIEW OFFICER * Nova Gannon MA - 10/27/2024 9:39 AM CST Please advise LIANCE REVIEW OFFICER documented in this encounter Plan of Treatment Upcoming Encounters Date Type Department Care Team (Late st Contact Info) Description 02/10/2025 1:40 PM CDT Office Visit [facility] Medical Group Family & Internal Medicine [address] [phone] Supriya Headley MD [address] [place] [address] [place] [address] documented as of this encounter Visit Diagnoses Not on filedocumented in this encounter Care Teams Cardiac Rehabilitation Program Director Relationship Specialty Start Date End Date Loni Singh LABORER/GRADE CHECK [address] [place] [address] PCP - General Nurse Practitioner Family 06/09/2410/20 [place] [address] [address] [place] [address] PCP - General INTERNAL MEDICINE 11/03/24 documented as of this encounter
--- OUTSIDE RECORDS SUMMARY | 2024-12-22 12:07 | XMS_ITS | Encounter Summary ---
Author Organization [facility] Address [address] [place] [address] Care Team Providers Care Carrier Associate Name Role Phone Supriya Headley MD Primary Care Provider Encounter Details Date Type Department Care Team (Late st Contact Info) Description 11/18/2024 MyChart Message Enc [facility] Family & Internal Medicine [address] [phone] [place] [address] [facility] [address] [place] [address] Stress test Social History Tobacco Use Types Packs/Day Years Used Date Smoking Tobacco: Every Day Cigarettes 0.5 15 Smokeless Tobacco: Never Comments:Trying to quit Alcohol Use Standard Drinks/Week Comments Yes 0 (1 standard drink = 0.6 oz pur e alcohol) rarely PHQ-2 Answer Date Recorded Patient Health Questionnaire-2 Score 0 11/11/2024 Sex and Gender Information Value Date Recorded Sex Assigned at Male 11/03/2024 2:46 PM BOARD FILLER Legal Sex Male 1:52 PM CDT Gender Identity Male 11/11/2024 8:25 AM BOARD FILLER Sexual Orientation Lesbian or Jeffrey 11/11/2024 8: 25 AM BOARD FILLER documented as of this encounter Plan of Treatment Upcoming Encounters Date Type Department Care Team (Late st Contact Info) Description 02/10/2025 1:40 PM CDT Office Visit [facility] Family & Internal [address] [address] [place] [address] [facility] [address] [place] [address] documented as of this encounter Visit Diagnoses Not on filedocumented in this encounter Additional Health Concerns Assessment Noted Time PHQ-9 Depression Total Score: 0 11/11/19 8:23 AM BOARD FILLER documented as of this encounter Care Teams Carrier Associate Relationship Specialty [place] [address] [place] [address] PCP - General INTERNAL MEDICINE 11/03/24 documented as of this encounter
--- OUTSIDE RECORDS SUMMARY | 2024-12-22 12:07 | XMS_ITS | Encounter Summary ---
Author Organization [facility] Address [facility] [place] [address] Care Team Providers Care Security Professional Name Role Phone Supriya Headley MD Primary Care Provider Encounter Details Date Type Department Care Team (Late st Contact Info) Description 11/17/2024 Dealer Tire Message Enc [facility] Family & Internal Medicine [address] [address] [facility] Provider requests Social History Tobacco Use Types Packs/Day Years Used Date Smoking Tobacco: Every Day Cigarettes 0.5 15 Smokeless Tobacco: Never Comments:Trying to quit Alcohol Use Standard Drinks/Week Comments Yes 0 (1 standard drink = 0.6 oz pur e alcohol) rarely PHQ-2 Answer Date Recorded Patient Health Questionnaire-2 Score 0 11/11/2024 Sex and Gender Information Value Date Recorded Sex Assigned at Male 11/03/2024 2:46 PM GRAIN UNLOADER Legal Sex Male 1:52 PM CDT Gender Identity Male 11/11/2024 8:25 AM GRAIN UNLOADER Sexual Orientation Lesbian or Jeffrey 11/11/2024 8: 25 AM GRAIN UNLOADER documented as of this encounter Plan of Treatment Upcoming Encounters Date Type Department Care Team (Late Contact Info) Description 02/10/2025 1:40 PM CDT Office Visit [facility] Family Internal [address] [address] Supriya Headley MD [address] [place] [address] [place] [address] documented as of this encounter Visit Diagnoses Not on filedocumented in this encounter Additional Health Concerns Assessment Noted Time PHQ-9 Depression Total Score: 0 11/11/19 8:23 AM GRAIN UNLOADER documented as of this encounter Care Teams Security Professional Relationship Specialty [place] [address] [place] [address] PCP - General INTERNAL MEDICINE 11/03/24 documented as of this encounter
--- OUTSIDE RECORDS SUMMARY | 2024-12-22 12:07 | XMS_ITS | Encounter Summary ---
Author Organization [facility] Address [facility] [place] [address] Care Team Providers Care Yard Assistant Name Role Phone Supriya Headley MD Primary Care Provider Encounter Details Date Type Department Care Team (Late st Contact Info) Description 11/22/2024 Push Energyhart Message Enc [facility] General Surgery [address], [address] [place] [address] Kelsey Subramanian MD [address] [facility] [address] [place] [address] Fatty mass in throat Social History Tobacco Use Types Packs/Day Years Used Date Smoking Tobacco: Every Day Cigarettes 0.5 15 Smokeless Tobacco: Never Comments:Trying to quit Alcohol Use Standard Drinks/Week Comments Yes 0 (1 standard drink = 0.6 oz pur e alcohol) rarely PHQ-2 Answer Date Recorded Patient Health Questionnaire-2 Score 0 11/11/2024 Sex and Gender Information Value Date Recorded Sex Assigned at Male 11/03/2024 2:46 PM TURBINE ENGINE ASSEMBLER Legal Sex Male 1:52 PM CDT Gender Identity Male 11/11/2024 8:25 AM TURBINE ENGINE ASSEMBLER Sexual Orientation Lesbian or Jeffery 11/11/2024 8: 25 AM TURBINE ENGINE ASSEMBLER documented as of this encounter Plan of Treatment Upcoming Encounters Date Type Department Care Team (Late st Contact Info) Description 02/10/2025 1:40 PM CDT Office Visit [facility] Family & Internal Medicine [address] [phone] [place] [address] [address] [place] [address] documented as of this encounter Visit Diagnoses Not on filedocumented in this encounter Additional Health Concerns Assessment Noted Time PHQ-9 Depression Total Score: 0 11/11/19 8:23 AM TURBINE ENGINE ASSEMBLER documented as of this encounter Care Teams Yard Assistant Relationship Specialty [place] [address] [place] [address] PCP - General INTERNAL MEDICINE 11/03/24 documented as of this encounter
--- OUTSIDE RECORDS SUMMARY | 2024-12-22 12:07 | XMS_ITS | Encounter Summary ---
Author Organization [facility] Address [facility] [place] [address] Care Team Providers Care Software Systems Architect Name Role Phone Emory Zuluaga NP Primary Care Provide r Loni Singh NP Primary Care Provider Supriya Headley MD Primary Care Provider Encounter Details Date Type Department Care Team (Late st Contact Info) Description 04/05/2024 [employer]esis [employer] Message Enc [facility] Medical Group Family & Internal Medicine [address] [address] Emory Zuluaga, NATAN [address] [facility] [place] [address] ENT issues Social History Tobacco Use Types Packs/Day Years Used Date Smoking Tobacco: Every Day Cigarettes Smokeless Tobacco: Never Alcohol Use Standard Drinks/Week Comments Yes 0 (1 standard drink = 0.6 oz pur e alcohol) rarely PHQ-2 Answer Date Recorded Patient Health Questionnaire-2 Score 0 02/06/2024 Sex and Gender Information Value Date Recorded Sex Assigned at Male 11/03/2024 2:46 PM RESEARCH TEST ENGINE EVALUATOR Legal Sex Male 1:52 PM CDT Gender Identity Male 11/11/2024 8:25 AM RESEARCH TEST ENGINE EVALUATOR Sexual Orientation Lesbian or Jeffrey 11/11/2024 8: 25 AM RESEARCH TEST ENGINE EVALUATOR documented as of this encounter Progress Notes * Saadia Burgos RN - 04/05/2024 2:35 PM CDT Please advise, documented in this encounter Plan of Treatment Upcoming Encounters Date Type Department Care Team (Late st Contact Info) Description 02/10/2025 1:40 PM CDT Office Visit [facility] Medical Group Family & Internal Medicine [facility] [address] [place] [address] [place] [address] [address] documented as of this encounter Visit Diagnoses Not on filedocumented in this encounter Care Teams Software Systems Architect Relationship Specialty Start Date End Date Emory Zuluaga NP PCP - General NURSE PRACTITIONER ADULT HEALTH 02/03/24 05/09/24 [place] [address] [address] [address]. [place] [address] PCP - General Nurse Practitioner Family 06/09/2410/20 [place] [address] [place], [place] [phone] PCP - General INTERNAL MEDICINE 11/03/24 documented as of this encounter
--- OUTSIDE RECORDS SUMMARY | 2024-12-22 12:07 | XMS_ITS | Encounter Summary ---
Author Organization [facility] Address [facility] [place] [address] Care Team Providers Care Curing Finisher Name Role Phone Loni Singh NP Primary Care Provider Supriya Headley MD Primary Care Provider Encounter Details Date Type Department Care Team (Late st Contact Info) Description 10/08/2024 Osteomimetics Message Enc [facility] Medical Group Family & Internal Medicine [address] [address] Loni Singh NP [address] [place] [address] E.n.t. Release Forms Social History Tobacco Use Types Packs/Day Years Used Date Smoking Tobacco: Every Day Cigarettes 0.5 15 Smokeless Tobacco: Never Comments:Trying to quit Alcohol Use Standard Drinks/Week Comments Yes 0 (1 standard drink = 0.6 oz pur e alcohol) rarely PHQ-2 Answer Date Recorded Patient Health Questionnaire-2 Score 0 02/06/2024 Sex and Gender Information Value Date Recorded Sex Assigned at Male 11/03/2024 2:46 PM WHEELCHAIR VAN OPERATOR FIRST RESPONDER Legal Sex Male 1:52 PM CDT Gender Identity Male 11/11/2024 8:25 AM WHEELCHAIR VAN OPERATOR FIRST RESPONDER Sexual Orientation Lesbian or Jeffrey 11/11/2024 8: 25 AM WHEELCHAIR VAN OPERATOR FIRST RESPONDER documented as of this encounter Plan of Treatment Upcoming Encounters Date Type Department Care Team (Late st Contact Info) Description 02/10/2025 1:40 PM CDT Office Visit [facility] Medical Group Family & Internal Medicine - [place] [address] [place] [phone] [place] [address] [address] documented as of this encounter Visit Diagnoses Not on filedocumented in this encounter Care Teams Curing Finisher Relationship Specialty Start Date End Date Loni Singh, GROCERY CARRIER [address] [address]. [place] [address] PCP - General Nurse Practitioner Family 06/09/2410/20 [place] [address] [place] [address] PCP - General INTERNAL MEDICINE 11/03/24 documented as of this encounter
--- OUTSIDE RECORDS SUMMARY | 2024-12-22 12:07 | XMS_ITS | Encounter Summary ---
Author Organization [facility] Address [facility] [facility] [place] [address] Care Team Providers Care Director Orange Name Role Phone Unavailable Primary Care Provider Unavailabl e Reason for Referral * Consultation (Routine) - Closed Specialty Diagnoses / Procedures Referred By Conthanna t Referred To Contact Dermatology Diagnoses Intrinsic eczema Hidradenitis suppurativa Loni Singh APRN-CNP [address] [place] [address] [facility] [address] [place] [address] Referral ID Status Reason Start Date Expiration Date V isits Requested Visits Authorized [id number] Closed Specialty Services Required 09/20/2024 09/20/2025 1 1 'S [facility]PENTER Encounter Details Date Type Department Care Team (Latest Contact Info) Description 09/20/2024 Transcribe Orders [facility] - Centralized Scheduling [address] [place] [phone] Loni Singh APRN-CAMPUS REP [address] [place] [address] Intrinsic eczema ; Hidradenitis suppurativa Social History Tobacco Use Types Packs/Day Years Used Date Smoking Tobacco: Never Assessed Sex and Gender Information Value Date Recorded Sex Assigned at Not on file Gender Identity Not on file Sexual Orientation Not on file documented as of this encounter Plan of Treatment Scheduled Referrals Name Type Priority Associated Diagnoses Order Schedule AMB REFERRAL TO DERMATOLOGY Outpatient Referral Routine Intrinsic eczema Hidradenitis suppurativa 1 Occurrences starting 09/20/2024 until 09/20/2025 documented as of this encounter Visit Diagnoses Diagnosis Intrinsic eczema- Primary Hidradenitis suppurativa Hidradenitis documented in this encounter
--- OUTSIDE RECORDS SUMMARY | 2024-12-22 12:07 | XMS_ITS | Encounter Summary ---
Author Organization [facility] Address Formerly [facility] [place] [address] Care Team Providers Care Adaptive Physical Education Teacher Name Role Phone Emory Zuluaga NP Primary Care Provide r Loni Singh NP Primary Care Provider Supriya Headley MD Primary Care Provider Encounter Details Date Type Department Care Team (Late st Contact Info) Description 02/10/2024 Listen Edition Message Enc [facility] Medical Group Family & Internal Medicine [address] [address] Emory Zuluaga, NATAN [address] [facility] [place] [address] Methyliprednosolone Social History Tobacco Use Types Packs/Day Years Used Date Smoking Tobacco: Every Day Cigarettes Smokeless Tobacco: Never Alcohol Use Standard Drinks/Week Comments Yes 0 (1 standard drink = 0.6 oz pur e alcohol) rarely PHQ-2 Answer Date Recorded Patient Health Questionnaire-2 Score 0 02/06/2024 Sex and Gender Information Value Date Recorded Sex Assigned at Male 11/03/2024 2:46 PM RESOURCING CONSULTANT Legal Sex Male 1:52 PM CDT Gender Identity Male 11/11/2024 8:25 AM RESOURCING CONSULTANT Sexual Orientation Lesbian or Jeffrey 11/11/2024 8: 25 AM RESOURCING CONSULTANT documented as of this encounter Progress Notes * Ann Lira MA - 02/11/2024 6:49 AM CDT Advise? documented in this encounter Plan of Treatment Upcoming Encounters Date Type Department Care Team (Late st Contact Info) Description 02/10/2025 1:40 PM CDT Office Visit [facility] Medical Group Family & Internal Medicine [facility] [address] [place] [address] [place] [address] [address] documented as of this encounter Visit Diagnoses Not on filedocumented in this encounter Care Teams Adaptive Physical Education Teacher Relationship Specialty Start Date End Date Emory Zuluaga NP PCP - General NURSE PRACTITIONER ADULT HEALTH 02/03/24 05/09/24 [place] [address] [address] [place] [address] PCP - General Nurse Practitioner Family 06/09/2410/20 [place] [address] [place] [address] PCP - General INTERNAL MEDICINE 11/03/24 documented as of this encounter
== END 2024-12-22 10:39 | disposition home or self-care (01) ==
LOC: ANHCARD 10:40
PROVIDERS: PCP Internal Medicine; Visit Provider Internal Medicine
DX: R06.02 Shortness of breath (principal)
CPT/HCPCS: 93017